=== PATIENT | male | born 1950 | race Caucasian/White ===

== ENCOUNTER 2024-06-17 12:56 | Inpatient (IN) | payer OTHER, SELFPAY ==
[2024-06-17] VITALS (14 sets, daily range): BP systolic 94–163; BP diastolic 52–98; PULSE 2–87; BMI 20.2; BMI 20.1
[2024-06-17 08:27] LABS: Glucose - Point of Care 260 mg/dl (70-99)
[2024-06-17 09:05] LABS: % Basophils 0.2 % (0-2); % Eosinophils 0.4 % (0-6); % Immature Granulocytes 0.9 % (0-0.5); % Lymphocytes 3.4 % (20.5-51.1); % Monocytes 5.4 % (1.7-9.3); % Neutrophils 89.7 % (42.2-75.2); Absolute Eosinophils 0.1 10^3/uL (0-0.7); Absolute Immature Granulocytes 0.1 10^3/uL (0-0.05); Absolute Lymphocytes 0.4 10^3/uL (1.2-3.4); Absolute Monocytes 0.7 10^3/uL (0.1-0.6); Absolute Neutrophils 11.5 10^3/uL (1.4-6.5); Hematocrit 34.4 % (39.0-52.0); Hemoglobin 10.7 g/dL (13.0-18.0); Mean Corp Hgb Conc. 31.1 g/dL (33.0-37.0); Mean Corpuscular Hgb 33.8 pg (27.0-31.0); Mean Corpuscular Volume 108.5 fL (80.0-94.0); Mean Platelet Volume 10.3 fL (7.4-10.4); Nucleated Red Blood Cells % 0 % (-); Platelet Count 170 10^3/uL (130-400); Red Blood Cell Count 3.17 10^6/uL (4.70-6.10); Red Cell Dist. Width 11.6 % (11.5-14.5); White Blood Cell Count 12.8 10^3/uL (4.8-10.8)
[2024-06-17 09:26] LABS: ALT (SGPT) 50 U/L (0-50); AST (SGOT) 61 U/L (17-59); Albumin 4.2 g/dl (3.5-5.0); Alkaline Phosphatase 80 U/L (38-126); Blood Urea Nitrogen 49 mg/dl (9-20); Calcium 10.4 mg/dl (8.4-10.2); Chloride 88 mmol/L (98-107); Glucose 247 mg/dl (70-99); Potassium 5.1 mmol/L (3.5-5.1); Sodium 141 mmol/L (135-145); Total Bilirubin 0.4 mg/dl (0.2-1.3); Total Protein 6.9 g/dl (6.3-8.2); eGFR > 60.00
[2024-06-17 09:28] LABS: INR 0.92; PT 12.2 Sec (11.4-14.6)
[2024-06-17 09:37] LABS: Troponin I 0.017 ng/ml
--- NOTE | 2024-06-17 09:43 | ED.GENMED ---
History of Present Illness
General
Chief Complaint: Unresponsive
Source: patient, records, spouse and ambulance crew
Exam Limitations: none
Time Seen by Provider: 06/17/24 08:19
Nursing documentation reviewed up to this point in time: agreed with
History of Present Illness
History of Present Illness:
Patient is a 74-year-old male who presents from home via EMS after being found unresponsive without any respirations this morning. When EMS arrived they found a systolic blood pressure 40 and respiratory rate of 4. Patient's pulse ox was in the
single digits. Patient is normally on 2 to 3 L of oxygen chronically. 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 Patient also has a history of prostate cancer. Patient was
treated with cisplatin and radiation for the tongue cancer. Patient has a G-tube because of aspiration and difficulty swallowing. Patient's speech according to family is at his baseline which is slurred. EMS also found the patient to be with a
left facial droop and weak on the left side and called a stroke alert. However when the patient arrived it was noted that he no longer had the facial droop nor any focality of weakness. Patient denies headache, neck pain, chest pain or shortness
of breath. Patient denies abdominal pain or extremity pain.
Past History
Past History
ED Past Medical History: Arrthythmia (Atrial flutter), Asthma, Cancer (tongue with metastasis to the lung w/ resection and Prostate), HTN, Hypercholesterolemia and Other (Dysphagia, PNA, chronic cough, Anemia, GI bleeding, )
ED Past Surgical History: Other (PEG tube, Lung resection from throat CA, Hernia repair)
Patient has exhibited threatening behavior?: No
Social History
Tobacco: Former smoker
Alcohol: None
Personal:
Living: with family
Review of Systems
Review of Systems
All Other Systems: ROS reviewed and negative except as documented in HPI and ROS
Constitutional: Reports fatigue; Denies fever or chills
EENT: Reports other (Chronic clearing of throat); Denies sore throat or runny nose
Respiratory: Reports no symptoms
Cardiac: Reports no symptoms
ABD/GI: Reports no symptoms
: Reports no symptoms
Musculoskeletal: Reports no symptoms; Denies neck pain
Skin: Reports no symptoms
Neurological: Reports weakness; Denies headache
Hematologic/Lymphatic: Reports no symptoms
Phy Exam
Physical Exam
Physical Exam:
Physical Exam
General: significant distress, alert and appropriate, cachectic with dry mucous membranes
HENT: Normocephalic, supple with no lymphadenopathy, no thyromegaly. Dry oral mucosa
Eyes: Clear sclera, conjuctiva without injection
Heart: Regular rhythm and rate. No S3, S4. Grade 2/6 holosystolic murmur heard best at the base. No NVD
Lungs: No respiratory distress, no stridor, lung sounds clear and equal bilaterally, chest wall symmetrical and nontender
Abdomen: Soft, nontender, no organomegaly, bowel sounds diminished. G-tube in the left upper quadrant
Neuro: Alert and oriented to person, CN II - XII intact, no motor focality
Skin: Scattered ecchymosis
Psychiatric: well kept. interactive and cooperative
Extremities: No edema, cyanosis, tenderness
Course
Orders/Labs/Results
Orders:
Orders
06/17/24 08:16
Electrocardiogram (*1) Urgent
Reason for Study: Chest Pain
CT Head W/o Cont STROKE ALERT Stat
Comment:
Reason For Exam: r/o stroke
EKG- Treatment ONCE
06/17/24 08:51
Complete Blood Count/With Diff Urgent
Comprehensive Metabolic Panel Urgent
Lactic Acid Q4H
Comment: CANCEL 2nd LACTIC ACID IF 1st LACTIC ACID IS LESS THAN 2
PTT Urgent
Prothrombin Time Urgent
Sed Rate [Erythrocyte Sed Rate] Urgent
TSH Reflex To Free T4 Urgent
Troponin I Urgent
Blood Culture Urgent
SANNA Source: Blood/Venous
Specimen Description:
06/17/24 09:40
0.9% Sodium Chloride 1000 ml [Nss] 1,000 ml IV BOLUS
Piperacillin/Tazo 4.5 Gram [Zosyn] 4.5 gram in 100 ml IV NOW
06/17/24 10:56
Vancomycin [Vancocin] 1,500 mg 0.9% Sodium Chloride [Nss] 20 ml 0.9% Sodium Chloride 250 ml [Nss] 250 ml IV NOW
06/17/24 10:58
Urinalysis Reflex To Culture Urgent
Date Specimen was Collected: 06/17/24
Time Specimen was Collected: 10:44
Urine Microscopic Reflex Cult Urgent
06/17/24 12:21
Manager Developmental Consult Routine
Consulting Provider: Thong Apple
Was physician already notified: Yes
Reason for consult: Acute hypoxia with chronic aspiration, unresponsiveness
06/17/24 12:22
NEUROLOGY CONSULT Routine
Consulting Provider: Cecilia Lopez
Was physician already notified: Yes
Reason for consult: Unresponsiveness, LT sided facial droop (resolved), TIA vs. seizure
06/17/24 12:24
Admit/Transfer Patient As Directed
Co-Sign Provider:
Level of Care: Inpatient admission
Assign to:: IMU- Intermediate Care
Physician / Group: Dr. Janusz Fields/Hospitalists
Diagnosis: Unresponsiveness, Hypoxia, Hypotension
Reason for Hospitalization: Unresponsiveness, Hypoxia, Hypotension
Expected length of stay greater than two midnights?: Yes
ELOS- Estimated Length of Stay in days: 3
I certify the patient meets the requirements for IP care: Yes
PRN Pain Medication Management As Directed
May give lesser potent ordered pain med per pt: Yes
preference::
Protocol:: Medication orders for pain may be administered in a
manner that supports deferring to patient preference
when the pt is:
- Requesting an ordered lesser potent pain medication.
Least to most potent pain medications are defined
as: acetaminophen < NSAID < tramadol < opioids
(morphine, oxycodone, hydromorphone).
- Requesting a lesser dose of the same medication IF
ORDERED.
- Requesting a less intrusive route of administration
if both routes are prescribed by the provider (PO <
IV).
06/17/24 12:26
Code Status As Directed
Resuscitation Status: Full Code
06/17/24 12:36
Echo 2D MMode Color/Doppler Routine
Reason for Study: Suspected Syncope/Unresponsiveness
06/17/24 12:37
Bladder Scan As Directed
Follow Bladder Retention/Intermittent Cath Algorithm?: Yes
PRN if no void in __ hours: 6
Frequency: Per Retention Algorithm
If Bladder Scan Result >: 400
then:: Straight cath
Straight Cath As Directed
Frequency: Per Retention Algorithm
Additional Instructions: straight cath as needed per acute urinary retention algorithm for 24 hrs
Additional Instructions: for bladder scan greater than 400 mL
06/17/24 12:39
CR Chest - 2 Views Urgent
Comment:
Reason For Exam: Unresponsiveness, hypoxia
06/17/24 12:44
INFECTIOUS DISEASE CONSULT Routine
Consulting Provider: Vishnu Harris
Was physician already notified: Yes
Reason for consult: Suspected sepsis of unknown source
06/17/24 13:22
Arterial Blood Gas Routine
%Oxygen/Room Air: 90
06/17/24 13:26
Ammonia Routine
Lactic Acid Q4H
Comment: CANCEL 2nd LACTIC ACID IF 1st LACTIC ACID IS LESS THAN 2
Abnormal Lab Results
06/17/24 06/17/24 06/17/24
08:12 08:51 10:58
WBC 12.8 H 10^3/uL
(4.8-10.8)
RBC 3.17 L 10^6/uL
(4.70-6.10)
Hgb 10.7 L g/dL
(13.0-18.0)
Hct 34.4 L %
(39.0-52.0)
MCV 108.5 H fL
(80.0-94.0)
MCH 33.8 H pg
(27.0-31.0)
MCHC 31.1 L g/dL
(33.0-37.0)
Abs Immat Gran (auto) 0.1 H 10^3/uL
(0-0.05)
Absolute Neuts (auto) 11.5 H 10^3/uL
(1.4-6.5)
Absolute Lymphs (auto) 0.4 L 10^3/uL
(1.2-3.4)
Absolute Monos (auto) 0.7 H 10^3/uL
(0.1-0.6)
Immature Gran % 0.9 H %
(0-0.5)
Neutrophils % 89.7 H %
(42.2-75.2)
Lymphocytes % 3.4 L %
(20.5-51.1)
ESR 26 H mm/hour
(0-20)
Chloride 88 L mmol/L
(98-107)
Carbon Dioxide 43 H mmol/L
(22-30)
BUN 49 H mg/dl
(9-20)
Glucose 247 H mg/dl
(70-99)
Lactic Acid 3.0 H mmol/L
(0.7-2.0)
Calcium 10.4 H mg/dl
(8.4-10.2)
AST 61 H U/L
(17-59)
Ur Occult Blood Reflex 2+ A
(Negative)
Urine RBC 3-6 A /HPF
(0-2)
Urine Bacteria (Reflex) Few A
(Negative)
Urine Glucose 1+ A
(Negative)
Urine Albumin (Reflex) 1+ A
(Neg - Trace)
POC Glucose 260 H mg/dl
(70-99)
06/17/24 08:51
06/17/24 08:51
Vital Signs
Initial and Last Documented VS:
Initial Vital Signs
Pulse Resp BP Pulse Ox
69 30 133/69 74
06/17/24 08:08 06/17/24 08:08 06/17/24 08:08 06/17/24 08:08
Last Documented Vital Signs
Temp Pulse Resp BP Pulse Ox
96.0 F L 70 16 112/61 97
06/17/24 11:30 06/17/24 11:15 06/17/24 11:15 06/17/24 11:00 06/17/24 11:15
*Critical Care Note
Total Time (30-74mins, 75-104mins- exclusive of procedures): 45 minutes
Update Note
Update Note:
There are no signs of a CVA. Patient was premorbid. I believe all the symptoms were due to hypoperfusion as well as hypoxia. Patient was found to be hypothermic. Patient's lactic acid is elevated. Believe the etiology is infectious. Patient
will be admitted. Discussed this with the family. Patient is much more alert and interactive at this time and looks much improved.
ED Attending Note
-
Portions of this chart may have been created with voice recognition software.� Occasional wrong word or��sound alike� substitutions may have occurred due to the inherent limitations of voice recognition software.
Discharge Plan
Departure
Patient Disposition: Admit
Date of Disposition: 06/17/24
Time of Disposition: 10:30
Admit to: Telemetry
Admit to doctor: Hospitalist
Presentation/result/management discussed w/ accepting MD/DO: Hospitalist
Patient with high blood pressure during this ER visit?: No
Condition: Serious
Covid-19: Not Applicable
Discharge Problem:
Hypothermia, Acute lactic acidosis, Acute alteration in mental status
Interventions
Interventions:
*General Assessment Last Done: 06/17/24 08:08
ED- Neurological Assessment Last Done: 06/17/24 09:15
[2024-06-17 09:57] LABS: TSH Reflex To Free T4 3.93 uIU/ml (0.47-4.68)
[2024-06-17] MEDS: NSS 1000 IV ×2 (10:09→16:48)
[2024-06-17] MEDS: ZOSYN 100 IV (10:10)
[2024-06-17 10:18] LABS: Carbon Dioxide 43 mmol/L (22-30)
[2024-06-17 10:35] LABS: Erythrocyte Sed Rate 26 mm/hour (0-20)
--- NOTE | 2024-06-17 10:55 | HPS.HSE ---
Addendum entered and electronically signed by Janusz Fields MD 06/17/24 14:30:
Based on results of ABG and after discussion with pulmonary on-call physician, ordered BiPAP with settings 15/5 to start now.
Original Note:
Family Physician
-
Family Physician: Rogelio Skinner
Chief Complaint
-
Unresponsiveness
History of Present Illness
74 y/o male with past medical history of throat cancer status post chemo and radiation, chronic slurred speech, left lung metastasis status post wedge resection, prostate cancer status post radiation, hypertension, paroxysmal atrial flutter,
bronchiectasis, chronic aspiration pneumonitis (on 2 to 3 L of oxygen at home), chronic aspiration status post PEG dependent for feeding, left gastric artery hemorrhage, intra-abdominal hematoma, anemia of chronic disease and dyslipidemia presented
with unresponsiveness. He presented from home via EMS after being found unresponsive without any respirations this morning; when EMS arrived they found a systolic blood pressure 40 and respiratory rate of 4; patient's pulse ox was in the single
digits. Patient's speech according to family is at his baseline which is slurred. Per report, EMS also found the patient to be with a left facial droop and weak on the left side and called a stroke alert but when the patient arrived it was noted
that he no longer had the facial droop nor any focality of weakness.
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
setting of using oral anticoagulation with Eliquis and he had an urgent angiogram after K[facility] with successful coiling and resolution of extravasation, he was given IV fluids and also required blood transfusions and his enteral feedings were able
to be resume later in the hospitalization without any problems. His anticoagulation was held and surgery felt that even though he could be restarted on anticoagulation from surgical standpoint they recommended to hold anticoagulation indefinitely
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
so based on those discussions he would decide whether to restart anticoagulation or not down the road.
Medical History
Past Medical History
Past Medical History: Reports Other (As per HPI above)
Past Surgical History: Reports Other (PEG tube, Lung resection from throat CA, Hernia repair)
Social History
Tobacco: Non-smoker
Alcohol: None
Drug: None
Family History
Family History: Not pertinent
Allergies / Home Medications
Allergies reflects when Allergies were last updated in [facility].
Home Medications with original date entered in [facility]
Allergy/Medication List:
Allergies
Allergy/AdvReac Type Severity Reaction Status Date / Time
No Known Allergies Allergy Verified 06/08/23 08:48
Home Medications
atorvastatin 20 mg tablet 20 mg feeding tube DAILY High Cholesterol 06/08/23
metoprolol tartrate 50 mg tablet 50 mg feeding tube BID Blood Pressure 07/15/23
Lactobac no.2-Bifidobac no.1-S. thermo 112.5 billion cell capsule (Visbiome) 1 cap PO DAILY 06/17/24
acetaminophen 325 mg tablet (Tylenol) 650 mg feeding tube Q6HPRN PRN mild pain 06/17/24
amlodipine 2.5 mg tablet (Norvasc) 2.5 mg feeding tube DAILY 06/17/24
cholecalciferol (vitamin D3) 25 mcg (1,000 unit) tablet (Vitamin D3) 25 mcg feeding tube DAILY 06/17/24
docusate sodium 100 mg capsule (Colace) 100 mg PO BID 06/17/24
guaifenesin 200 mg/5 mL oral liquid 200 mg feeding tube R BID 06/17/24
ipratropium bromide 0.02 % solution for inhalation 0.5 mg inhalation R BID 06/17/24
Review of Systems
-
A 12 point ROS was completed and negative except as noted: Yes
Physical Exam
Vital Signs
Vital Signs
Temp Pulse Resp BP Pulse Ox
93.3 F L 65 26 163/91 88
06/17/24 08:30 06/17/24 09:00 06/17/24 09:00 06/17/24 09:01 06/17/24 09:00
Physical Exam
General: No Apparent Distress, Comfortable and Slurred Speech
HEENT: NormoCephalic and Moist mucous membranes
Respiratory: Decreased Breath Sounds
Cardiac: S1/S2 and Regular Rhythm
GI: Soft, Non Tender and Normal Bowel Sounds
Musculoskeletal: No Cyanosis and No Edema
Skin: Warm and Dry
Neuro: Awake, Alert, AO x 3, Nonfocal/grossly intact, Cranial Nerves Intact (except for slurred speech) and Other (No facial droop. Strength and sensation grossly intact bilaterally.)
Psych: Calm and Intact Judgment/Insight
Laboratory Results
-
06/17/24 08:51
06/17/24 08:51
Laboratory Results
PT 12.2 Sec (11.4-14.6) 06/17/24 08:51
INR 0.92 06/17/24 08:51
APTT 27.0 Sec (23.4-35.0) 06/17/24 08:51
Lactic Acid 3.0 mmol/L (0.7-2.0) H 06/17/24 08:51
Total Bilirubin 0.4 mg/dl (0.2-1.3) 06/17/24 08:51
AST 61 U/L (17-59) H 06/17/24 08:51
ALT 50 U/L (0-50) 06/17/24 08:51
Alkaline Phosphatase 80 U/L (38-126) 06/17/24 08:51
Troponin I 0.017 ng/ml 06/17/24 08:51
Impression/Plan
-
Assessment/Plan
Unresponsiveness with hypotension and bradypnea
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
Chronic slurred speech
-When EMS arrived they found a systolic blood pressure 40 and respiratory rate of 4; patient's pulse ox was in the single digits
-Now stable in the ER
-Admit to and monitor in IMU
-Patient does not use any drugs or narcotic pain medications as per his and him
-Check ABG, Ammonia, Magnesium
-Check echo
-Trend troponins
-IV fluids
-Consulted pulmonary/revenue field auditor, evaluation and recommendations appreciated
-Consulted neurology, recommendations appreciated
Concern for Sepsis with Leukocytosis and Hypothermia
-Received Vancomycin and Zosyn in the ER
-Patient and his report no new skins redness or new rash, any urinary symptoms or any new cough that is above his baseline for aspiration
-Blood cultures ordered
-Source is unclear so far
-Continue antibiotics with Unasyn for now since this could have been aspiration-related
-Consulted ID, evaluation and recommendations appreciated
Hypothermia
-Continue Caitlyn Hugger
-Monitor vital signs
Left lung metastasis status post wedge resection
Prostate cancer status post radiation
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
-Avoiding blood thinners
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
History of Throat Cancer s/p XRT and Chemo
- Patient uses Jevity 1.5 at home. Five 8oz cans daily with water flushes before and after meals and meds.
- Continue home tube feed Jevity 1.5 at 20 mL/hr and increase by 10 with goal of 55
- Will consult dietary for any updated tube feeding recommendations
Bronchiectasis (on 2 to 3 L of oxygen at home)
Chronic Aspiration Pneumonitis
- Patient normally sees Dr. Powers outpatient
- Check CXR
- Continue usual inhaled medication regimen.
- Aspiration precautions / HOB restrictions.
- Follow for any new / worsening symptoms.
- Patient is strict NPO - takes all meds / meals via PEG.
Paroxysmal Atrial Flutter
- Stable. Continue metoprolol with holding parameters.
- Patient's stated on 06/17/24 that patient does not take Eliquis anymore
Anemia of Chronic Disease
- Hgb 10.7 today
History of MRSA
Dyslipidemia
Hypertension
DVT Prophylaxis: SCDs for now -- checking with surgery whether chemical DVT prophylaxis is okay
Code Status: Full
[2024-06-17 11:33] LABS: Urine Albumin 1+ (Neg - Trace); Urine Bilirubin Negative (Negative); Urine Character Clear (Clear); Urine Color Yellow; Urine Glucose 1+ (Negative); Urine Ketone Negative (Negative); Urine Leukocyte Negative (Negative); Urine Nitrite Negative (Negative); Urine Occult Blood 2+ (Negative); Urine Specific Gravity 1.015 (<1.030); Urine Urobilinogen Negative (Neg - 1+)
[2024-06-17] MEDS: VANCOCIN 300 ML IV (11:49)
[2024-06-17] MEDS: VANCOCIN 300 MG IV (11:49)
[2024-06-17 12:07] LABS: Urine Bacteria Few (Negative); Urine White Cell None Seen /HPF (0-5)
[2024-06-17 13:31] LABS: B.E. 18.2 mmol/L; PO2 70 mmHg (83-108); pH 7.28 (7.35-7.45)
[2024-06-17 13:32] LABS: O2 Therapy 90
[2024-06-17 13:33] LABS: PCO2 103 mmHg (35-48)
[2024-06-17 13:34] LABS: HCO3 48.4 mmol/L (21-28)
[2024-06-17 13:56] LABS: Ammonia 13 umol/L (9-30)
[2024-06-17 13:57] LABS: Lactic Acid 0.9 mmol/L (0.7-2.0)
[2024-06-17 14:01] LABS: NT-proBNP 588 pg/ml
--- NOTE | 2024-06-17 14:49 | CON.ID ---
Consultation
-
Date/Time Consultation Requested: 06/17/2024 1244
Date/Time Consultation Performed: 06/17/2024 1420
Requesting Provider: Dr. Fields
Performing Provider: Dr. Harris
Reason for Consultation: Clinical sepsis
Chief Complaint / Past History
History of Present Illness
Asael Pierre is a 74-year-old man with a significant past medical history of remote throat cancer, along with prostate cancer and bronchiectasis. He is being evaluated at the request of Dr. Casillas in regards to clinical sepsis. History
is obtained from chart review, along with patient interview, and review of records contained in the hospital EMR system. Additionally, history was obtained of the patient's who was at the bedside.
According to the , the patient was in his usual state of health until this morning when she went to wake him up as he was late to arise. When she found him he was found completely unresponsive, seemingly not breathing. EMS was called, and when
they found him in his systolic blood pressure was 40, with respiratory rate of 4. The patient was emergently transported to the hospital. By the time the patient arrived at the hospital, his clinical status improved and he was much more awake and
answering questions. He does not recall the prior episode.
At present, he denies any pain. He has a chronic cough. He denies any abdominal discomfort.
Past History
Additional Past Medical History:
Atrial flutter
Asthma
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
Prostate cancer
HTN
Dyslipidemia
Chronic dysphagia
Recurrent aspiration pneumonia
Chronic cough
Anemia
Hx GI bleed
Additional Past Surgical History:
PEG tube
lung resection
Hernia repair
Allergy History:
No Known Allergies Allergy (Verified 06/08/23 08:48)
Medications Reviewed: Yes
Current Antibiotics:
Unasyn 1.5 g IV every 6 hours
Social History
Tobacco: Former Smoker
Alcohol: None
Drug: None
Personal:
Living: With Family
Employment: Retired
Family History
Family History: Not Pertinent
Review of Systems
Vital Signs
Temp Pulse Resp BP Pulse Ox
96.0 F L 70 16 112/61 97
06/17/24 11:30 06/17/24 11:15 06/17/24 11:15 06/17/24 11:00 06/17/24 11:15
Physical Exam
Physical Exam
Constitutional: No Acute Distress, Comfortable, Chronically Ill and Cachetic
Head: Normocephalic
Eyes: Pupils Equal, Pupils Round, No Conjunctival Hemorrhage and Sclera Anicteric
Oral: No Thrush and No Ulcers
Cardiovascular: Regular Rate and S1/S2; Negative S3/S4 or Murmur
Pulmonary: Rhonchi (scattered), Coarse and Other (Mildly labored)
Gastrointestinal: Soft, Non Distended and Other (PEG in place without erythema)
Genito-Urinary: Negative [place]
Extremities: Negative Edema, Cyanosis or Erythema
Neurological: Awake and Alert
Psychological: Calm
.
Lab / Diagnostic Study Results
06/17/24 08:51
06/17/24 08:51
Abs Immat Gran (auto) 0.1 10^3/uL (0-0.05) H 06/17/24 08:51
Absolute Neuts (auto) 11.5 10^3/uL (1.4-6.5) H 06/17/24 08:51
Absolute Lymphs (auto) 0.4 10^3/uL (1.2-3.4) L 06/17/24 08:51
Absolute Monos (auto) 0.7 10^3/uL (0.1-0.6) H 06/17/24 08:51
Absolute Basos (auto) 0.0 10^3/uL (0-0.2) 06/17/24 08:51
Immature Gran % 0.9 % (0-0.5) H 06/17/24 08:51
Neutrophils % 89.7 % (42.2-75.2) H 06/17/24 08:51
Lymphocytes % 3.4 % (20.5-51.1) L 06/17/24 08:51
Monocytes % 5.4 % (1.7-9.3) 06/17/24 08:51
Eosinophils % 0.4 % (0-6) 06/17/24 08:51
Basophils % 0.2 % (0-2) 06/17/24 08:51
ESR 26 mm/hour (0-20) H 06/17/24 08:51
PT 12.2 Sec (11.4-14.6) 06/17/24 08:51
INR 0.92 06/17/24 08:51
Lactic Acid 0.9 mmol/L (0.7-2.0) 06/17/24 13:26
Microbiology Results
Micro:
06/17/24 08:51 Blood Culture - Pending
Blood/Venous
Imaging:
06/17/2024 CXR (2 view): Confluent pleural-parenchymal density throughout the lower two thirds of the left hemothorax and a similar and interstitial airspace disease in the upper third. Findings are most consistent with left-sided pneumonia with
associated pleural effusion. Right lung is clear. No pulmonary edema. See full report for additional detail. Film personally viewed.
Assessment / Plan
Unresponsive event
Extensive left-sided pneumonia
Leukocytosis with left shift
Anemia
Hypothermia
Atrial flutter
Asthma
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
Prostate cancer
HTN
Dyslipidemia
Chronic dysphagia
Recurrent aspiration pneumonia
Chronic cough
Anemia
Hx GI bleed
Recommendations:
Continue with empiric antibiotic coverage.
Patient with history of MRSA 1 year prior; continue empiric vancomycin.
Continue Unasyn, although increased to 3 g IV every 6 hours
Monitor white count and temperature curve.
Follow CXR.
--- NOTE | 2024-06-17 15:16 | CON.PUL ---
Consultation
Consultation Request
Date/Time Consultation Requested: 06/17/2024
Date/Time Consultation Performed: 06/17/2024
Requesting Provider: Dr. Fields
Performing Provider: Dr. Thong Rodriguez
Reason for Consultation: Acute hypercapnic respiratory failure
Medical History
-
History of Present Illness:
74-year-old man with past medical history noted including past throat cancer status post chemoradiation, PEG tube in place, speech impairment, left lung metastatic disease status post wedge resection
Prostate cancer status post radiation, hypertension, atrial fibrillation/flutter, chronic aspiration on 2 to 3 L of oxygen at home, prior GI bleed presented after he was found unresponsive.
Patient was found to be hypotensive as well. Also very hypoxemic. Initially with left-sided weakness that recovered.
Patient found to have acute hypercapnic respiratory failure with a pCO2 of 103. He was placed on BiPAP.
His mental status has improved since admission.
Past Medical History
Past Medical History: Other (See assessment and plan section)
Social History
Tobacco: Non-smoker
Alcohol: None
Drug: None
Family History
Family History: Unable to Obtain
Allergies / Home Medications
Allergies
Allergy/AdvReac Type Severity Reaction Status Date / Time
No Known Allergies Allergy Verified 06/08/23 08:48
Home Medications
�Medication �Instructions �Recorded �Confirmed �Last Taken �Type
atorvastatin 20 mg tablet 20 mg feeding tube DAILY High 06/08/23 06/17/24 06/16/24 History
Cholesterol
metoprolol tartrate 50 mg tablet 50 mg feeding tube BID Blood 07/15/23 06/17/24 06/16/24 History
Pressure
Lactobac no.2-Bifidobac no.1-S. 1 cap PO DAILY 06/17/24 06/17/24 06/16/24 History
thermo 112.5 billion cell capsule
(Visbiome)
acetaminophen 325 mg tablet 650 mg feeding tube Q6HPRN PRN 06/17/24 06/17/24 Unknown History
(Tylenol) mild pain
amlodipine 2.5 mg tablet (Norvasc) 2.5 mg feeding tube DAILY 06/17/24 06/17/24 Unknown History
cholecalciferol (vitamin D3) 25 25 mcg feeding tube DAILY 06/17/24 06/17/24 Unknown History
mcg (1,000 unit) tablet (Vitamin
D3)
docusate sodium 100 mg capsule 100 mg PO BID 06/17/24 06/17/24 06/16/24 History
(Colace)
guaifenesin 200 mg/5 mL oral liquid 200 mg feeding tube R BID 06/17/24 06/17/24 06/16/24 History
ipratropium bromide 0.02 % 0.5 mg inhalation R BID 06/17/24 06/17/24 06/16/24 History
solution for inhalation
Review of Systems
-
Unable to Obtain full review of systems at this time due to: Acuity
Vitals / Labs / Diagnostic Testing
Vital Signs
Temp Pulse Resp BP Pulse Ox
96.0 F L 80 24 107/72 97
06/17/24 11:30 06/17/24 14:30 06/17/24 14:30 06/17/24 15:00 06/17/24 14:30
Lab Data
06/17/24 08:51
06/17/24 08:51
Laboratory Results
06/17/24 06/17/24
08:51 13:22
PT 12.2
INR 0.92
APTT 27.0
pH 7.28 L
pCO2 103 H*
pO2 70 L
HCO3 48.4 H*
O2 Delivery Level 90
Diagnostic Testing:
Physical Exam
-
HEENT: Normocephalic
Cardiovascular: S1/S2
Respiratory: Other (Decreased breath sounds on left)
GI: Soft and Other (PEG tube in place)
Neurology: Awake
Skin: Warm
General: Comfortable (at rest)
Assessment
-
74-year-old man with past medical history noted. Admitted with change in mental status/unresponsiveness. Found to have hypercapnic respiratory failure. Improved clinically in regards to mental status. Chest x-ray showed extensive left-sided
infiltrate with possible subsegmental atelectasis/pneumonia.
Acute hypercapnic respiratory failure
ABG 06/17/2024: 7.28//70
Pneumonia-likely bacterial. Cannot rule out aspiration
Extensive left-sided infiltrate with likely subsegmental atelectasis based on the left shift of the mediastinum.
Hyperglycemia
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
Admitted to the hospital with left gastric artery bleeding status post embolization 06/2023
Chronic PEG
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
Left Lung Met s/p Wedge Resection
Prostate Cancer s/p XRT
Autonomic Insufficiency with Labile Blood Pressure
Paroxysmal Atrial Flutter, on apixaban
Bronchiectasis
Chronic Aspiration Pneumonitis
Dyslipidemia
Former Smoker (Quit 13 years ago. Smoke cigars prior to that)
DNR
Assessment and plan:
Clinical picture likely explained by left-sided pneumonia with possible segmental atelectasis. Suspect aspiration event.
Continue BiPAP therapy bedtime and as needed.
Repeat ABG tomorrow morning as his mental status has improved
Start secretion clearance interventions: Acapella device/vest therapy
Nebulizers 3 times a day
Repeat chest x-ray tomorrow
If there is no improvement on the left sided white out on Wednesday, bronchoscopy may need to be performed.
-
Agree with antibiotics. Ampicillin sulbactam. Infectious disease has been consulted. Correspondence reviewed.
Blood/sputum cultures
-
Continue oxygen supplementation to maintain pulse ox above 90%
Avoid sedatives
-
Head of the bed elevation
Tube feedings via PEG tube.
-
DVT prophylaxis
-
Will follow
--- NOTE | 2024-06-17 16:12 | PHA.VAN.IN ---
Assessment
- Assessment
Renal Function: Appears similar to baseline (SCR & BUN may be slightly elevated)
Concomitant Antimicrobials: ampicillin/sulbactam
Plan
- Plan
Initial / Loading Dose: 1500mg - 06/17 11:49
Maintenance Regimen: dosing by level
Monitoring: random 06/18 0600
Due to elevated BUN - will start with dosing by level for today to ensure patient adequately clearing before scheduling further dosing
Additionally, current est CrCl, currently predicts ~Q24H interval but is borderline and may need more frequent interval if SCR decreases
Pharmacokinetics Vancomycin I
- -
Patient Age: 74
Patient Sex: Male
Vancomycin Day #: 1
Indication: Pulmonary/Respiratory
Requesting Provider: Dr. Harris
Pertinent Antimicrobial Allergies:
NKDA
Height / Weight:
Height 5 ft 10 in
Actual Weight 63.8 kg
Pertinent Past Medical History: PEG
- Vital Signs / Lab Results
Temp Pulse Resp BP Pulse Ox
96.0 F L 80 24 154/95 97
06/17/24 11:30 06/17/24 14:30 06/17/24 14:30 06/17/24 16:00 06/17/24 14:30
Lab Results - Hematology
06/17/24
08:51
WBC 12.8 H
Lab Results - Chemistry
06/17/24
08:51
BUN 49 H
Creatinine 1.0
Albumin 4.2
06/17/24 06/17/24
08:51 13:26
Lactic Acid 3.0 H 0.9
Lab Results - Urine
06/17/24
10:58
Urine Nitrite (Reflex) Negative
Leukocyte Esterase Rfl Negative
Urine WBC (Reflex) None seen
Urine Bacteria (Reflex) Few A
[2024-06-17] MEDS: PULMICORT 0.25 MG INH ×2 (16:15→20:01)
[2024-06-17] MEDS: VENTOLIN NEBULES 2.5 MG INH ×2 (16:16→20:01)
[2024-06-17 16:45] LABS: Ammonia < 9 umol/L (9-30)
[2024-06-17 16:52] LABS: Creatine Phosphokinase 40 U/L (55-170); Magnesium 2.3 mg/dl (1.6-2.3)
[2024-06-17 17:00] LABS: Troponin I 0.079 ng/ml
--- NOTE | 2024-06-17 17:04 | PTCARENOTE ---
Addendum entered by Nica Dominguez RN 06/17/24 19:20:
pox alarming 79% on bipap, diaphoretic- removed bipap and placed on NRB mask- RT called urgent- pox came back up to 95-98%. Pt nodding he feels better now. IVF infusing/ IV antibx.
Original Note:
Admitted to 3353, IMU monitors placed- oral 98.1, SR 85, RR 36 88-90% on 6L, BP 154/90. AAOx3, excessive oral secretions- suctioned assisted coughing improved but still gurgling. RT called for assistance. RT here to give neb/ vest therapies
possibly bipap. IVF initiated via left ext. jug int. VAT team notified of site. G/J tube intact- will initiate tube feeding when available. Denies pain.
Currently RT still assisting- now attempting bipap. pox 88-89%.
[2024-06-17] MEDS: UNASYN IV ×2 (17:44→23:19)
[2024-06-17] MEDS: LIPITOR 20 MG TUBE (17:45)
[2024-06-17 18:09] LABS: Glucose - Point of Care 106 mg/dl (70-99)
--- NOTE | 2024-06-17 18:35 | CON.MD ---
Consultation - Medical
-
Patient is a 74-year-old male well-known to me as an outpatient. He has a history of head and neck cancer that was diagnosed and treated in 2012. He underwent biopsy of the base of tongue mass along with radiation to the base of tongue and
head and neck in 2012. Subsequently he was found to have a lung metastasis several years after his initial diagnosis. The lung met was treated with local resection only, no chemotherapy or radiation. Following treatment for his head and neck
cancer the patient has had worsening dysphagia. He has had a history of aspiration pneumonia with multiple hospitalizations for aspiration pneumonia in the past. He has failed a number of swallowing studies and is now n.p.o. He only takes
nutrition via his PEG tube. The patient also has slurred speech at his baseline due to side effects from his head and neck cancer treatment. He is otherwise neurologically intact at baseline.
The patient does have increased salivation due to his history of dysphagia. He has been getting Botox injections to his salivary glands in my office. Yesterday, June 16, at 2 PM he received his second Botox injection. We injected 50 units of
Botox into each submandibular gland. No parotid injection was performed. The patient tolerated the procedure well. He drove himself home. He states that he felt fine yesterday afternoon and evening subsequent to the injection. He went to bed
and was unarousable this morning. He was found by his . 911 was called. Initially he was found to have a left facial droop. However when he got to [facility] the facial droop had apparently resolved.
Currently he is short of breath but otherwise feels okay. His head and neck examination this evening is unremarkable. No facial droop is noted and his facial nerve appears intact and symmetric bilaterally.
On chest x-ray there is a near whiteout of the left lung. This seems to be consistent with left lung pneumonia, likely aspiration related.
A/P-my impression of Asael Castorena is that he is a 74-year-old male with a history of head and neck cancer, he has a long history of aspiration, now appears to have aspiration pneumonia of the left lung.
-Medical treatment as per primary medical team.
-Continue to feed patient via PEG tube.
-Hopefully the Botox injected yesterday will improve his hypersalivation, possibly decreasing his risk of aspiration in the future.
-Patient can continue ENT follow-up as planned.
-Please contact me if there are any further issues
[2024-06-17] MEDS: ATROVENT NEBULES 0.5 MG INH (20:01)
[2024-06-17] MEDS: LOPRESSOR 50 MG PO (20:11)
[2024-06-17] MEDS: NOVOLOG FLEXPEN-LOW RESISTANCE SC (23:46)
[2024-06-17 23:50] LABS: Troponin I 0.069 ng/ml
[2024-06-17 23:54] LABS: Glucose - Point of Care 138 mg/dl (70-99)
[2024-06-18] VITALS (17 sets, daily range): BP systolic 113–157; BP diastolic 61–110; PULSE 2–83; O2SAT 98; BMI 20.4
[2024-06-18 04:49] LABS: B.E. 19.9 mmol/L; O2 Saturation % 97.2 % (94-98); PO2 76 mmHg (83-108); pH 7.31 (7.35-7.45)
[2024-06-18 04:53] LABS: HCO3 49.3 mmol/L (21-28); PCO2 98 mmHg (35-48)
[2024-06-18 05:28] LABS: ALT (SGPT) 33 U/L (0-50); AST (SGOT) 35 U/L (17-59); Albumin 3.2 g/dl (3.5-5.0); Alkaline Phosphatase 66 U/L (38-126); Blood Urea Nitrogen 45 mg/dl (9-20); Calcium 9.1 mg/dl (8.4-10.2); Chloride 94 mmol/L (98-107); Estimated Creatinine Clearance 81 ml/min; Glucose 150 mg/dl (70-99); Potassium 4.5 mmol/L (3.5-5.1); Sodium 140 mmol/L (135-145); Total Bilirubin 0.3 mg/dl (0.2-1.3); Total Protein 5.6 g/dl (6.3-8.2); eGFR > 60.00
[2024-06-18 05:33] LABS: Vancomycin Random 10.4 ug/ml
[2024-06-18] MEDS: UNASYN IV ×4 (05:43→23:51)
[2024-06-18 05:49] LABS: Carbon Dioxide 42 mmol/L (22-30)
[2024-06-18 05:57] LABS: Hemoglobin 8.5 g/dL (13.0-18.0); White Blood Cell Count 10.5 10^3/uL (4.8-10.8)
[2024-06-18 05:58] LABS: % Lymphocytes 1.9 % (20.5-51.1); % Monocytes 7.6 % (1.7-9.3); Hematocrit 26.8 % (39.0-52.0); Mean Corp Hgb Conc. 31.7 g/dL (33.0-37.0); Mean Corpuscular Volume 107.2 fL (80.0-94.0); Platelet Count 111 10^3/uL (130-400); Red Cell Dist. Width 11.8 % (11.5-14.5)
[2024-06-18] MEDS: NSS 1000 IV ×2 (05:58→23:52)
[2024-06-18 05:59] LABS: % Basophils 0.1 % (0-2); % Immature Granulocytes 0.4 % (0-0.5); Absolute Lymphocytes 0.2 10^3/uL (1.2-3.4); Absolute Monocytes 0.8 10^3/uL (0.1-0.6); Absolute Neutrophils 9.4 10^3/uL (1.4-6.5); Nucleated Red Blood Cells % 0 % (-)
[2024-06-18 06:16] LABS: Vitamin B12 923 pg/ml (239-931)
[2024-06-18 06:33] LABS: Glucose - Point of Care 155 mg/dl (70-99)
[2024-06-18] MEDS: NOVOLOG FLEXPEN-LOW RESISTANCE 1 UNITS SC ×2 (06:38→18:34)
[2024-06-18] MEDS: PULMICORT 0.25 MG INH ×2 (07:44→20:03)
[2024-06-18] MEDS: ATROVENT NEBULES 0.5 MG INH ×2 (07:45→20:03)
[2024-06-18] MEDS: VENTOLIN NEBULES 2.5 MG INH ×2 (07:46→20:03)
[2024-06-18] MEDS: LOPRESSOR 50 MG PO ×2 (08:49→19:37)
[2024-06-18] MEDS: LIPITOR 20 MG TUBE (08:49)
--- NOTE | 2024-06-18 09:29 | CON.NEURO4 ---
Consultation - Neurology 4
-
CONSULTING PHYSICIAN: Jessica
REFERRING PHYSICIAN: hospitalist
DICTATED BY: Jessica
DATE/TIME OF REQUEST: 06/17/24 afternoon
DATE/TIME OF CONSULTATION: 06/18/24 AM
Reason for Consultation: facial droop--transient, ?seizure
History of Present Illness:
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
in after being found unresponsive and hypotensive as well as hypoxemic. Initially his respiratory rate was 4. Systolic blood pressure was in the 40s. He has had lactic acidosis which has improved. He received IV fluids and antibiotics.
Initially a stroke alert was called which was then canceled by the ER. Later I was consulted by the Dr. Fields. There is concern for left-sided facial droop noted by regulator assembler and the patient's which occurred initially which then resolved.
Concern is also been raised for possible seizure. No clear convulsive seizure activity was noted by the patient's with the event. She says he has been 'jerky and tremulous' intermittently over the past few weeks.
He received 50 units of Botox into each submandibular gland on Wednesday around 2 PM.
Mental status has improved since admission. No seizure activity since admission. He is at his baseline per his .
PMH:
Atrial flutter
Asthma
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
Prostate cancer
HTN
Dyslipidemia
Chronic dysphagia
Recurrent aspiration pneumonia
Chronic cough
Anemia
Hx GI bleed
PSH:
PEG tube
lung resection
Hernia repair
Allergies
No Known Allergies Allergy (Verified 06/08/23 08:48)
Home Medications
�Medication �Instructions �Recorded
atorvastatin 20 mg tablet 20 mg feeding tube DAILY High 06/08/23
Cholesterol
metoprolol tartrate 50 mg tablet 50 mg feeding tube BID Blood 07/15/23
Pressure
Lactobac no.2-Bifidobac no.1-S. 1 cap PO DAILY 06/17/24
thermo 112.5 billion cell capsule
(Visbiome)
acetaminophen 325 mg tablet 650 mg feeding tube Q6HPRN PRN 06/17/24
(Tylenol) mild pain
amlodipine 2.5 mg tablet (Norvasc) 2.5 mg feeding tube DAILY 06/17/24
cholecalciferol (vitamin D3) 25 25 mcg feeding tube DAILY 06/17/24
mcg (1,000 unit) tablet (Vitamin
D3)
docusate sodium 100 mg capsule 100 mg PO BID 06/17/24
(Colace)
guaifenesin 200 mg/5 mL oral liquid 200 mg feeding tube R BID 06/17/24
ipratropium bromide 0.02 % 0.5 mg inhalation R BID 06/17/24
solution for inhalation
Review of Symptoms:
Patient denies any headache, chest pain, GI or symptoms.
�Per the HPI.�All systems are reviewed negative except above.
Vital Signs
Temp Pulse Resp BP Pulse Ox
98.8 F 83 28 140/79 97
06/18/24 07:25 06/18/24 08:49 06/18/24 07:49 06/18/24 08:49 06/18/24 07:49
Lab Results
06/18/24 04:53
06/18/24 04:53
PT 12.2 Sec (11.4-14.6) 06/17/24 08:51
INR 0.92 06/17/24 08:51
APTT 27.0 Sec (23.4-35.0) 06/17/24 08:51
Sodium 140 mmol/L (135-145) 06/18/24 04:53
Potassium 4.5 mmol/L (3.5-5.1) 06/18/24 04:53
BUN 45 mg/dl (9-20) H 06/18/24 04:53
Glucose 150 mg/dl (70-99) H 06/18/24 04:53
Calcium 9.1 mg/dl (8.4-10.2) 06/18/24 04:53
Hrb-U-Fanevolcihx Pept 588 pg/ml 06/17/24 13:26
Vitamin B12 923 pg/ml (239-931) 06/18/24 04:53
Physical Exam:
The patient is afebrile, heart sounds S1 and S2 are regular , and chest is clear to auscultation bilaterally.
Neurologic Examination:
The patient is awake, alert and oriented x 3. He is able to follow commands and answer questions appropriately. There is no aphasia; has baseline dysarthria s/p head and neck cancer--this is his baseline per the patient and his . On cranial
nerve assessment, pupils are 3 mm bilateral, round and reactive to light and accommodation. Visual sethi are full. Extraocular movements are intact. Facial sensations are intact and bilaterally symmetrical, there is no facial asymmetry. Hearing is
intact bilaterally to normal conversation volume. Tongue palate and uvula are midline. Sternocleidomastoid strengths are full bilaterally. Motor strengths are 5/5 bilateral upper and lower extremities on medical research [place] scale. There is no
drift or involuntary movement noted. Deep tendon reflexes are 1+ bilateral upper and lower extremities and Babinski is absent bilaterally. Sensations of touch, temperature are intact and bilaterally symmetrical. There was no extinction noted on
double simultaneous stimulation. Coordination is intact by finger to nose bilaterally.
Neuro Imaging:
HCT 06/17:
There are no acute abnormalities.
There is no intracranial hemorrhage.
There is no edema or mass effect to suggest neoplasm.
There are no abnormal extra-axial fluid collections.
There are no focal areas of diminished density to suggest recent infarct.
There is mild diffuse cortical atrophy as evidenced by prominence of the CSF spaces.
IMPRESSION:
No acute intracranial abnormalities.
Impression:
MERCY NEIL is a 74 year old M with a complex past medical history brought in with unresponsiveness and concern for possible L facial weakness prior to this event which has resolved. He was very hypotensive and hypoxemic with the event.
He has been found to have left sided PNA, possibly due to aspiration.
Differentials for the patient's presentation include:
1. syncope
2. seizure seems less likely
3. ?transient left facial weakness--concern raised for TIA
Recommendations:
-MRI brain w/wo contrast when able (if able to tolerate); otherwise could repeat a HCT instead
-has a h/o of GI bleed--GI consulted to clear him for DAPT or single antiplatelet given possibility of TIA
-CUS
- very much doubt that this event was seizure but patient does report possible myoclonic jerks over past few weeks so will check an EEG tomorrow
-BP goal is normotension.
- Check hemoglobin A1C. Goal is normoglycemia.
- continue atorvastatin. Check LDL. Goal LDL after stroke is <70.
- Check an echocardiogram.
-PT/OT/ST evaluations
- DVT prophylaxis
-continue neurochecks, seizure precautions
-reviewed notes from pulm, hospitalist, ENT
Will c/t follow.
Discussed patient care with: patient, patient's , hospitalist
--- NOTE | 2024-06-18 09:34 | W.PN.ID1 ---
Date of Service
Date of Service: June 18, 2024
Today's Communication
Continue antibiotics.
Assessment / Plan
Unresponsive event
Extensive left-sided pneumonia
Leukocytosis with left shift
Anemia
Hypothermia
Atrial flutter
Asthma
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
Prostate cancer
HTN
Dyslipidemia
Chronic dysphagia
Recurrent aspiration pneumonia
Chronic cough
Anemia
Hx GI bleed
Recommendations:
Patient with history of MRSA 1 year prior; continue empiric vancomycin.
Continue Unasyn 3 g IV every 6 hours
Monitor white count and temperature curve.
Follow CXR. Today's imaging appears slightly improved from yesterday's.
Chief Complaint
-: Pneumonia
Subjective / Review of Systems
Patient seen and examined. Reports feeling fair today. Breathing is comfortable.
Vital Signs / Physical Exam
Vital Signs
Vital Signs
Temp Pulse Resp BP Pulse Ox
98.8 F 83 28 140/79 97
06/18/24 07:25 06/18/24 08:49 06/18/24 07:49 06/18/24 08:49 06/18/24 07:49
Physical Exam
Constitutional: No Acute Distress, Comfortable, Chronically Ill and Non-toxic
Eyes: Sclera Anicteric
Cardiovascular: S1/S2; Negative S3/S4
Pulmonary: Rhonchi (Scattered), Coarse and Non Labored
Gastrointestinal: Soft, Non Tender and Non Distended
Extremities: Negative Cyanosis or Erythema
Neurological: Awake and Alert
Psychological: Calm
Objective Data
Lab Data
Lab Results
06/18/24 04:53
06/18/24 04:53
ESR 26 mm/hour (0-20) H 06/17/24 08:51
PT 12.2 Sec (11.4-14.6) 06/17/24 08:51
INR 0.92 06/17/24 08:51
APTT 27.0 Sec (23.4-35.0) 06/17/24 08:51
Estimated Creat Clear 81 ml/min 06/18/24 04:53
Lactic Acid 0.9 mmol/L (0.7-2.0) 06/17/24 13:26
Total Bilirubin 0.3 mg/dl (0.2-1.3) 06/18/24 04:53
AST 35 U/L (17-59) 06/18/24 04:53
ALT 33 U/L (0-50) 06/18/24 04:53
Alkaline Phosphatase 66 U/L (38-126) 06/18/24 04:53
Most recent labs reviewed.
Micro Results:
06/17/24 08:51 Blood Culture - Preliminary
Blood/Venous No Growth in 24 hours- Final report to follow
Imaging:
06/17/2024 CXR (2 view): Confluent pleural-parenchymal density throughout the lower two thirds of the left hemothorax and a similar and interstitial airspace disease in the upper third. Findings are most consistent with left-sided pneumonia with
associated pleural effusion. Right lung is clear. No pulmonary edema. See full report for additional detail. Film personally viewed.
Care Review
Plan reviewed with: Physician (Pulmonary)
--- NOTE | 2024-06-18 10:05 | W.PN.PUL3 ---
Today's Communication / Plan
-
Continue nebulizers
Continue secretion clearance interventions
Continue antibiotics
Follow cultures
Wean down oxygen as able
BiPAP at bedtime and as needed
Repeat ABG tomorrow.
Avoid sedatives
Increase activity as able
Aspiration precautions
Assessment
-
74-year-old man with past medical history noted. Admitted with change in mental status/unresponsiveness. Found to have hypercapnic respiratory failure. Improved clinically in regards to mental status. Chest x-ray showed extensive left-sided
infiltrate with possible subsegmental atelectasis/pneumonia.
Acute hypercapnic respiratory failure
ABG 06/17/2024: 7./
Pneumonia-likely bacterial. Cannot rule out aspiration
Extensive left-sided infiltrate with likely subsegmental atelectasis based on the left shift of the mediastinum.
Hyperglycemia
Possible TIA
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
Admitted to the hospital with left gastric artery bleeding status post embolization 06/2023-of anticoagulation since that
Chronic PEG
Chronic anemia
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
Left Lung Met s/p Wedge Resection
Prostate Cancer s/p XRT
Autonomic Insufficiency with Labile Blood Pressure
Paroxysmal Atrial Flutter, on apixaban
Bronchiectasis
Chronic Aspiration Pneumonitis
Dyslipidemia
Former Smoker (Quit 13 years ago. Smoke cigars prior to that)
DNR
Assessment and plan:
Clinical picture likely explained by left-sided pneumonia with possible segmental atelectasis. Suspect aspiration event.
Appears that the patient does have chronic hypercapnic respiratory failure. Decompensated due to pneumonia
-
Mental status back to baseline
ABG improved 06/18/2024:7.98/76.
Continue BiPAP therapy bedtime and as needed.
Avoid sedatives.
Repeat ABG once more tomorrow 06/19/2024.
-
Continue oxygen supplementation to maintain pulse ox above 90%. Patient is chronically on oxygen at home.
Currently at 6 L. Usually at home went up to 4 L per
-
Chest x-ray this morning 06/18/2024 reviewed: Showed better aeration of the left lung.
Continue secretion clearance interventions: Acapella device/vest therapy
Nebulizers: Pulmicort/Atrovent.
Albuterol as needed.
Continue to follow radiographically.
If there is not ongoing radiographic improvement Then will obtain CT chest.
-
Continue antibiotics: Ampicillin sulbactam. Infectious disease has been consulted. Correspondence reviewed.
MRSA screening positive.Vancomycin was added.
Blood/sputum cultures-pending.
-
Head of the bed elevation
Tube feedings via PEG tube-patient is a status post throat cancer status post chemoradiation. NPO.
-
Possible TIA. Neurologically back to baseline
Neurology following the patient
Management per primary team and neurology
-
DVT prophylaxis
-
Will follow
Subjective Data
-
Date of Service:
Date of Service: June 18, 2024
Chief Complaint: Pulmonary Follow Up (Pneumonia/hypercapnic respiratory failure)
Subjective:
No new complaints.
No significant phlegm production.
Remains on supplemental oxygen
Denies hemoptysis.
Review of Systems
General: Fever (n)
Cardiopulmonary: Dyspnea, Cough, Sputum Production (n) and Chest Pain (n)
GI: Abdominal Pain (n)
Objective Data
Data Reviewed
Vital Signs / I&O / Oxygen:
Vital Signs
Temp Pulse Resp BP Pulse Ox
98.8 F 83 28 140/79 97
06/18/24 07:25 06/18/24 08:49 06/18/24 07:49 06/18/24 08:49 06/18/24 07:49
Intake and Output
06/17/24 06/18/2406/19/24
06:59 06:59 06:59
Output Total 450 / 450
Balance -450 / -450
SaO2 97
Nasal Cannula flow liters per 6
minute
Physical Exam
General: Respiratory Distress (n) and Comfortable
HEENT: Normocephalic
Cardiovascular: S1-S2
Respiratory: Wheeze (n), Rhonchi (Scattered bilaterally per) and Other (Bronchial breath sounds on the left.)
GI: Soft and Non Distended
Neurology: Awake, Alert and Oriented
Skin: Warm
Labs/Micro/Reports
Lab Data
06/18/24 04:53
06/18/24 04:53
Laboratory Results
06/17/24 06/18/24
13:22 04:42
pH 7.28 L 7.31 L
pCO2 103 H* 98 H*
pO2 70 L 76 L
HCO3 48.4 H* 49.3 H*
O2 Delivery Level 90
Microbiology
06/17/24 08:51 Blood/Venous Blood Culture - Preliminary
No Growth in 24 hours- Final report to follow
--- NOTE | 2024-06-18 10:07 | PHA.VAN.FU ---
Vancomycin Assessment / Plan
- Assessment
Renal Function: SCR Decreasing
WBC's are: Trending Down
In the past 24 hrs, patient has been: Hypothermic (Tmin = 96)
Concomitant Antimicrobials: Ampicillin-sulbactam
- Assessment - Therapeutic Drug Monitoring
Random Level: R = 10.4 ~17hrs post Vanc 1500mg
- Dosing Plan
Continue: Dose by level. BUN is 45 today.
Dosing by Level: Re-dose today (Vanc 750mg--12mg/kg)
- Monitoring Plan
Random Level: 06/19 with AM labs
- Follow Up
Pharmacy will continue to follow.
Vancomycin Follow UP
- -
Patient Age: 74
Patient Sex: Male
Vancomycin Day #: 2
Indication: Pulmonary/Respiratory
Requesting Provider: Dr. Harris
Pertinent Antimicrobial Allergies:
NKDA
Height / Weight:
Height 5 ft 9 in
Actual Weight 62.5 kg
Pertinent Past Medical History: PEG
- Vital Signs / Lab Results
Temp Pulse Resp BP Pulse Ox
98.8 F 83 28 140/79 97
06/18/24 07:25 06/18/24 08:49 06/18/24 07:49 06/18/24 08:49 06/18/24 07:49
Lab Results - Hematology
06/17/24 06/18/24
08:51 04:53
WBC 12.8 H 10.5
Lab Results - Chemistry
06/17/24 06/18/24
08:51 04:53
BUN 49 H 45 H
Creatinine 1.0 0.7
Estimated Creat Clear 81
Albumin 4.2 3.2 L
06/17/24 06/17/24
08:51 13:26
Lactic Acid 3.0 H 0.9
Lab Results - Urine
06/17/24
10:58
Urine Nitrite (Reflex) Negative
Leukocyte Esterase Rfl Negative
Microbiology Results
06/17/24 08:51 Blood Culture - Preliminary
Blood/Venous No Growth in 24 hours- Final report to follow
Therapeutic Drug Monitoring
Random Vancomycin 10.4 ug/ml 06/18/24 04:53
[2024-06-18 11:53] LABS: LDL Cholesterol, Direct 58 mg/dl
[2024-06-18 12:13] LABS: Glucose - Point of Care 136 mg/dl (70-99)
--- NOTE | 2024-06-18 12:42 | W.PN.HOSP.TC ---
Addendum entered and electronically signed by Janusz Fields MD 06/18/24 15:31:
I received a [place] Text from on-call road design draftsperson, Dr. 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
acute CVA then okay to use anti platelets. Dr. Rios also noted that patient's was VERY afraid to use the Aspirin and Plavix since patient bled significantly in June 2023. Patient's is hoping that Aspirin and Plavix can be stopped if MRI
is negative/does not show stroke. I spoke via [place] Text with on-call neurologist Dr. Lopez who confirmed that the DAPT therapy that should be started is as follows: Aspirin 81 mg daily and Plavix 75 mg daily, both to start now.
Original Note:
Today's Communication/Plan
-
Appreciate GI evaluation of whether patient can be on Aspirin, Plavix or both given his history of major bleeding (treated here at [facility] last year)
Continue antibiotics
ABG improved
Aspiration precautions
Tube Feeds -- advance as tolerated to goal rate
Assessment / Plan
Assessment / Plan
Physical Exam
General: Not in Acute Distress
HEENT: Normocephalic
Respiratory: Decreased Breath Sounds and Scattered Rhonchi Bilaterally
Cardiac: S1/S2 and Regular Rhythm
GI: Soft, Non Tender and Normal Bowel Sounds
Musculoskeletal: No Cyanosis and No Edema
Skin: Warm and Dry
Neuro: Awake, Alert, AAO x 3, Nonfocal/grossly intact, Cranial Nerves Grossly Intact (except for slurred speech)
Psych: Calm and Intact Judgment/Insight

Assessment/Plan
Acute hypoxic and hypercapnic respiratory failure
Chronic Home Oxygen Use (2 to 4 L)
Suspected Aspiration Pneumonia
History of MRSA
-Currently on 5 to 6 L midflow oxygen; at home is usually on 2 to 4 L of oxygen
-ABG noted with significantly high CO2 with high bicarb as well, repeat ABG improved, repeat ABG tomorrow
-Continue BiPAP therapy bedtime and as needed.
-Avoid sedating agents
-Per imaging, extensive left-sided infiltrate with likely subsegmental atelectasis based on the left shift of the mediastinum.
-Continue Vancomycin and Unasyn
-Continue oxygen supplementation to maintain pulse oximetry above 90%.
-Breathing treatments/bronchodilators, acapella, and VEST therapy
Unresponsiveness with hypotension and bradypnea, suspected secondary to respiratory failure and hypercapnia
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
Chronic slurred speech
-When EMS arrived they found a systolic blood pressure 40 and respiratory rate of 4; patient's pulse ox was in the single digits
-Continue monitoring in IMU
-Patient does not use any drugs or narcotic pain medications as per his and him
-ABG noted
-Check echo
-Troponins elevated but with no significant increase
-IV fluids
-Consulted pulmonary/combat information center officer, evaluation and recommendations appreciated
-Consulted neurology, recommendations appreciated: MRI brain (only if patient can tolerate given his aspiration risk), question of whether or not patient can be started on Aspirin 81 mg daily and Plavix 75 mg daily or single antiplatelet agent -- GI
consulted to help determine whether DAPT or single platelet therapy would be safe for patient (given patient's gastric artery hemorrhage needing coiling here in [facility] in June 2023)
-Check EEG as per neurology
-Continue Atorvastatin
Concern for Sepsis with Leukocytosis and Hypothermia
-Received Vancomycin and Zosyn in the ER
-Patient and his report no new skins redness or new rash, any urinary symptoms or any new cough that is above his baseline for aspiration
-Blood cultures ordered
-Source is unclear so far
-Continue antibiotics with Unasyn for now since this could have been aspiration-related
-Consulted ID, evaluation and recommendations appreciated
Hypothermia
-Continue Caitlyn Hugger
-Monitor vital signs
Left lung metastasis status post wedge resection
Prostate cancer status post radiation
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
-Avoiding blood thinners
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
History of Throat Cancer s/p XRT and Chemo
- Patient uses Jevity 1.5 at home. Five 8oz cans daily with water flushes before and after meals and meds.
- Continue home tube feed Jevity 1.5 at 20 mL/hr and increase by 10 with goal of 55
- Will consult dietary for any updated tube feeding recommendations
Bronchiectasis (on 2 to 4 L of oxygen at home)
Chronic Aspiration Pneumonitis
- Patient normally sees Dr. Powers outpatient
- Continue usual inhaled medication regimen.
- Aspiration precautions / HOB restrictions.
- Follow for any new / worsening symptoms.
- Patient is strict NPO - takes all meds / meals via PEG.
Paroxysmal Atrial Flutter
- Stable. Continue metoprolol with holding parameters.
- Patient's stated on 06/17/24 that patient does not take Eliquis anymore due to concerns over bleeding risk
Anemia of Chronic Disease
- Hgb 10.7 today
History of MRSA
Dyslipidemia
Hypertension
Autonomic Insufficiency with Labile Blood Pressure
Former Smoker (Quit 13 years ago. Smoke cigars prior to that)
DVT Prophylaxis: SCDs for now -- DEYSI score is 3 (given age, respiratory failure and acute infection -- all other parameters on DEYSI score were negative as checked with patient's Mini). I encouraged (on 06/18/24) patient and patient's nurse
to help patient get out of bed and ambulate with assistance as much as possible to minimize the risk of a DVT. Administering Lovenox or Heparin for DVT prophylaxis carries a bleeding risk and patient has a history of a major bleed last year and he
is also above 70 years old. GI will evaluate to see whether patient can be given DAPT (or single antiplatelet agent) for possible stroke/TIA.
Code Status: Full
Anticipated Discharge: > 48 hours
Subjective/Interval History
-
Date of Service: June 18, 2024
Patient was seen and examined. He denied any new significant symptoms or complaints.
Objective Data
-
Labs:
Laboratory Results
06/18/24 06/18/24
04:42 04:53
WBC 10.5
Hgb 8.5 L D
Hct 26.8 L
Plt Count 111 L D
HCO3 49.3 H*
Sodium 140
Potassium 4.5
Chloride 94 L
Carbon Dioxide 42 H
BUN 45 H
Creatinine 0.7
Glucose 150 H
Calcium 9.1
Total Bilirubin 0.3
AST 35
ALT 33
Alkaline Phosphatase 66
Vital Signs:
Vital Signs
Temp Pulse Resp BP Pulse Ox
98.3 F 71 19 141/110 98
06/18/24 11:20 06/18/24 10:14 06/18/24 10:14 06/18/24 10:14 06/18/24 10:00
I&O
06/17/24 06/18/24 06/19/24
06:59 06:59 06:59
Output Total 450 / 450
Balance -450 / -450
[2024-06-18] MEDS: NOVOLOG FLEXPEN-LOW RESISTANCE SC ×2 (12:47→23:48)
[2024-06-18] MEDS: VANCOCIN 150 IV (12:53)
[2024-06-18] MEDS: COLACE LIQUID 100 MG TUBE ×2 (12:54→19:39)
--- NOTE | 2024-06-18 15:11 | PTCARENOTE ---
Addendum entered by Ernesto Santamaria RN 06/18/24 18:09:
Tube feeding residual 200ml. Patient c/o constipation with some bloating. Home colace restarted today, PRN miralax dose given.
Original Note:
Patient AAOx3. With baseline LUE tingling/decreased movement and baseline slurring. Patients only complaint is constipation, states LBM 06/16, home colace restarted today. Tube feeding now at goal and tolerating. 5L NC, sats 95%, patient with
productive cough, using yankaur to remove blood tinged sputum. NSR on monitor. VSS. Patient OOB to chair, at bedside. Continuing to closely monitor.
--- NOTE | 2024-06-18 15:14 | CON.GI ---
Consultation
-
Date/Time Consultation Requested: 06/18/24 10:06am
Date/Time Consultation Performed: 06/18/24 3:14pm
Requesting Provider: Janusz Fields
Performing Provider: Rizwan Rios
Reason for Consultation: possible CVA, need for ASA plavix
Medical History
Chief Complaint / HPI
Chief Complaint: possible CVA, need for ASA plavix
History of Present Illness:
Patient is a 74-year-old male who was found unresponsive by his and brought in by EMS. He had left-sided weakness that has since recovered. He is undergoing evaluation by neurology with plans for MRI of the brain. They are requesting okay to
use aspirin and Plavix in the setting of bleed last June. He was found to have active bleeding from the left gastric artery aneurysm with hemoperitoneum requiring embolization. Following the procedure bleeding was stopped and anticoagulation was
held since then. He has a history of a flutter.
Past Medical History
Past Medical History: Other (HPV Throat Cancer s/p XRT and Chemo Left Lung Met s/p Wedge Resection Prostate Cancer s/p XRT Autonomic Insufficiency with Labile Blood Pressure Paroxysmal Atrial Flutter Bronchiectasis Chronic Aspiration Pneumonitis
PEG-Dependent Dyslipidemia)
Past Surgical History: Other (Left Lung Wedge Resection Herniorrhaphy PEG Placement, Embolization of bleeding L gastric artery pseudoaneurysm/hemoperitoneum June/2023)
Social History
Tobacco: Former Smoker
Alcohol: None
Family History
Family History: Reviewed & Not Pertinent
Allergies / Home Medications
Allergy/AdvReac Type Severity Reaction Status Date / Time
No Known Allergies Allergy Verified 06/08/23 08:48
�Medication �Instructions �Recorded
atorvastatin 20 mg tablet 20 mg feeding tube DAILY High 06/08/23
Cholesterol
metoprolol tartrate 50 mg tablet 50 mg feeding tube BID Blood 07/15/23
Pressure
Lactobac no.2-Bifidobac no.1-S. 1 cap PO DAILY 06/17/24
thermo 112.5 billion cell capsule
(Visbiome)
acetaminophen 325 mg tablet 650 mg feeding tube Q6HPRN PRN 06/17/24
(Tylenol) mild pain
amlodipine 2.5 mg tablet (Norvasc) 2.5 mg feeding tube DAILY 06/17/24
cholecalciferol (vitamin D3) 25 25 mcg feeding tube DAILY 06/17/24
mcg (1,000 unit) tablet (Vitamin
D3)
docusate sodium 100 mg capsule 100 mg PO BID 06/17/24
(Colace)
guaifenesin 200 mg/5 mL oral liquid 200 mg feeding tube R BID 06/17/24
ipratropium bromide 0.02 % 0.5 mg inhalation R BID 06/17/24
solution for inhalation
Review of Systems
-
All other systems: A 12 pt ROS was Negative except as stated above in HPI
Vital Signs
Temp Pulse Resp BP Pulse Ox
98.3 F 69 32 128/77 99
06/18/24 11:20 06/18/24 14:00 06/18/24 14:00 06/18/24 14:00 06/18/24 14:00
Physical Exam
Exam
General: No Apparent Distress
HEENT: Atraumatic
Respiratory: Non Labored Respirations
GI: Soft, Non Tender, Non Distended and Other (PEG tube in place)
Results
WBC 10.5 10^3/uL (4.8-10.8) 06/18/24 04:53
Hgb 8.5 g/dL (13.0-18.0) L D 06/18/24 04:53
Hct 26.8 % (39.0-52.0) L 06/18/24 04:53
MCV 107.2 fL (80.0-94.0) H 06/18/24 04:53
Plt Count 111 10^3/uL (130-400) L D 06/18/24 04:53
Absolute Neuts (auto) 9.4 10^3/uL (1.4-6.5) H 06/18/24 04:53
PT 12.2 Sec (11.4-14.6) 06/17/24 08:51
INR 0.92 06/17/24 08:51
APTT 27.0 Sec (23.4-35.0) 06/17/24 08:51
Sodium 140 mmol/L (135-145) 06/18/24 04:53
Potassium 4.5 mmol/L (3.5-5.1) 06/18/24 04:53
Chloride 94 mmol/L (98-107) L 06/18/24 04:53
Carbon Dioxide 42 mmol/L (22-30) H 06/18/24 04:53
BUN 45 mg/dl (9-20) H 06/18/24 04:53
Creatinine 0.7 mg/dL (0.7-1.3) 06/18/24 04:53
Calcium 9.1 mg/dl (8.4-10.2) 06/18/24 04:53
Total Bilirubin 0.3 mg/dl (0.2-1.3) 06/18/24 04:53
AST 35 U/L (17-59) 06/18/24 04:53
ALT 33 U/L (0-50) 06/18/24 04:53
Alkaline Phosphatase 66 U/L (38-126) 06/18/24 04:53
Diagnostic Image Results:
Prior GI Procedures:
EGD:
Colonoscopy:
Assessment / Plan
-
Summary: 74yo male found unresponsive brought by EMS, left sided facial droop. Seen by Neurology and requesting OK for ASA/plavix. Has hx abdominal hematoma from L gastric artery pseudoaneurysm requiring embolization in June 2023.
Anticoagulation was stopped following that episode. He had recent PEG change a month prior to that and there was no bleeding from PEG and bleeding site was away from PEG entry or bumper. Hgb on admission 10.7, down to 8.5 after admission without
signs of bleeding
Impression:
Unresponsiveness, L sided facial droop
June/2023 abdominal hematoma from L gastric artery pseudoaneurysm s/p embolization of actively bleeding branch of L gastric artery
throat cancer s/p chemo/radiation, chronic slurred speech
prostate CA s/p XRT
PEG for chronic aspiration
Recommendations:
I reviewed with IR. 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
This bleeding site was adequately treated and ASA and plavix should be OK to use at this time in setting of possible acute CVA
Monitor Hgb, which did drop after admission.
-
-
Thank you for consultation and allowing me to participate in the patient's care. Please call the manager interventional GI physician during the after hours with any questions or concerns.
[2024-06-18 15:26] LABS: Glycohemoglobin (HgbA1c) 4.9 % (4.0-5.6)
[2024-06-18] MEDS: PLAVIX 75 MG PO (17:16)
[2024-06-18] MEDS: LOW STRENGTH ASPIRIN 81 MG PO (17:16)
[2024-06-18] MEDS: MIRALAX 17 GRAMS TUBE (17:21)
[2024-06-18 18:28] LABS: Glucose - Point of Care 154 mg/dl (70-99)
[2024-06-18 23:54] LABS: Glucose - Point of Care 129 mg/dl (70-99)
[2024-06-19] VITALS (12 sets, daily range): BP systolic 121–181; BP diastolic 69–135; PULSE 2–78; BMI 21.1
[2024-06-19] MEDS: VENTOLIN NEBULES 2.5 MG INH (03:17)
[2024-06-19 03:54] LABS: B.E. 19.1 mmol/L; O2 Saturation % 97.8 % (94-98); PO2 78 mmHg (83-108); pH 7.31 (7.35-7.45)
[2024-06-19 03:55] LABS: HCO3 48.3 mmol/L (21-28); PCO2 96 mmHg (35-48)
[2024-06-19 04:27] LABS: % Basophils 0.1 % (0-2); % Eosinophils 0.2 % (0-6); % Immature Granulocytes 1.1 % (0-0.5); % Lymphocytes 4.2 % (20.5-51.1); % Monocytes 6.6 % (1.7-9.3); % Neutrophils 87.8 % (42.2-75.2); Absolute Immature Granulocytes 0.1 10^3/uL (0-0.05); Absolute Lymphocytes 0.4 10^3/uL (1.2-3.4); Absolute Monocytes 0.6 10^3/uL (0.1-0.6); Absolute Neutrophils 8.4 10^3/uL (1.4-6.5); Hematocrit 25.4 % (39.0-52.0); Hemoglobin 8.1 g/dL (13.0-18.0); Mean Corp Hgb Conc. 31.9 g/dL (33.0-37.0); Mean Corpuscular Hgb 33.2 pg (27.0-31.0); Mean Corpuscular Volume 104.1 fL (80.0-94.0); Mean Platelet Volume 10.6 fL (7.4-10.4); Nucleated Red Blood Cells % 0 % (-); Platelet Count 120 10^3/uL (130-400); Red Blood Cell Count 2.44 10^6/uL (4.70-6.10); Red Cell Dist. Width 11.8 % (11.5-14.5); White Blood Cell Count 9.5 10^3/uL (4.8-10.8)
[2024-06-19 04:33] LABS: ALT (SGPT) 29 U/L (0-50); AST (SGOT) 29 U/L (17-59); Albumin 3.2 g/dl (3.5-5.0); Alkaline Phosphatase 66 U/L (38-126); Blood Urea Nitrogen 40 mg/dl (9-20); Calcium 9.4 mg/dl (8.4-10.2); Chloride 95 mmol/L (98-107); Estimated Creatinine Clearance 84 ml/min; Glucose 144 mg/dl (70-99); Potassium 4.3 mmol/L (3.5-5.1); Sodium 142 mmol/L (135-145); Total Bilirubin 0.2 mg/dl (0.2-1.3); Total Protein 5.6 g/dl (6.3-8.2); eGFR > 60.00
[2024-06-19 04:37] LABS: Vancomycin Random 9.6 ug/ml
[2024-06-19 04:51] LABS: Carbon Dioxide 47 mmol/L (22-30)
[2024-06-19] MEDS: UNASYN IV ×4 (05:58→23:58)
[2024-06-19] MEDS: NOVOLOG FLEXPEN-LOW RESISTANCE 1 UNITS SC ×2 (05:58→23:58)
--- NOTE | 2024-06-19 06:05 | PTCARENOTE ---
Residual 180ml's - s/w REAL ESTATE ASSESSOR, okay to hold x 2 hours. Rechecked residual = 55ml's. Restarted tube feed, no further issue. Pt having difficulty tolerating BiPAP mask do to excessive secretions and coughing - s/w RT, to use nose mask instead. Pt
tolerated nose mask better however removed mask several times due to uncomfrtable pressure. Re-educated Pt on need of BiPAP - RT reapplied BiPAP mask. Will continue to monitor and assess.
[2024-06-19 06:08] LABS: Glucose - Point of Care 151 mg/dl (70-99)
--- NOTE | 2024-06-19 06:50 | W.PN.HOSP.TC ---
Today's Communication/Plan
-
.
Assessment / Plan
Assessment / Plan
Physical Exam
General: Not in Acute Distress
HEENT: Normocephalic
Respiratory: Decreased Breath Sounds and Scattered Rhonchi Bilaterally
Cardiac: S1/S2 and Regular Rhythm
GI: Soft, Non Tender and Normal Bowel Sounds
Musculoskeletal: No Cyanosis and No Edema
Skin: Warm and Dry
Neuro: Awake, Alert, AAO x 3, Nonfocal/grossly intact, Cranial Nerves Grossly Intact (except for slurred speech)
Psych: Calm and Intact Judgment/Insight

Assessment/Plan
Acute on chronic hypoxic and hypercapnic respiratory failure
Chronic Home Oxygen Use (2 to 4 L)
Suspected Aspiration Pneumonia
History of MRSA
-Currently on 5 to 6 L midflow oxygen; at home is usually on 2 to 4 L of oxygen
-ABG noted with significantly high CO2 with high bicarb as well, repeat ABG improved, repeat ABG tomorrow
-Continue BiPAP therapy bedtime and as needed.
-Avoid sedating agents
-Per imaging, extensive left-sided infiltrate with likely subsegmental atelectasis based on the left shift of the mediastinum. Repeat chest x ray : Slightly improved left pleural effusion and diffuse left lung pneumonia.
-Continue Vancomycin and Unasyn
-Continue oxygen supplementation to maintain pulse oximetry above 90%.
-Breathing treatments/bronchodilators, acapella, and VEST therapy
Unresponsiveness with hypotension and bradypnea, suspected secondary to respiratory failure and hypercapnia
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
Chronic slurred speech
-When EMS arrived they found a systolic blood pressure 40 and respiratory rate of 4; patient's pulse ox was in the single digits
-Continue monitoring in IMU
-Patient does not use any drugs or narcotic pain medications as per his and him
-ABG noted
-Check echo
-Troponins elevated but with no significant increase
-IV fluids
-Consulted pulmonary/deputy director of public works, evaluation and recommendations appreciated
-Consulted neurology, recommendations appreciated: MRI brain (only if patient can tolerate given his aspiration risk), question of whether or not patient can be started on Aspirin 81 mg daily and Plavix 75 mg daily or single antiplatelet agent -- GI
consulted to help determine whether DAPT or single platelet therapy would be safe for patient (given patient's gastric artery hemorrhage needing coiling here in [facility] in June 2023)
-Check EEG as per neurology
-Continue Atorvastatin
Per GI: GI doctor reviewed with IR. 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
This bleeding site was adequately treated and ASA and Plavix should be OK to use at this time in setting of possible acute CVA
Monitor Hgb, which did drop after admission.
Positive troponin
not significant or c/w myocardial injury
No chest pains
Concern for Sepsis with Leukocytosis and Hypothermia
-Received Vancomycin and Zosyn in the ER
-Patient and his report no new skins redness or new rash, any urinary symptoms or any new cough that is above his baseline for aspiration
-Blood cultures ordered
-Source is unclear so far
-Continue antibiotics with Unasyn for now since this could have been aspiration-related
-Consulted ID, evaluation and recommendations appreciated
Hypothermia
-Continue Caitlyn Hugger
-Monitor vital signs
Left lung metastasis status post wedge resection
Prostate cancer status post radiation
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
-Avoiding blood thinners
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
History of Throat Cancer s/p XRT and Chemo
- Patient uses Jevity 1.5 at home. Five 8oz cans daily with water flushes before and after meals and meds.
- Continue home tube feed Jevity 1.5 at 20 mL/hr and increase by 10 with goal of 55
- Will consult dietary for any updated tube feeding recommendations
Bronchiectasis (on 2 to 4 L of oxygen at home)
Chronic Aspiration Pneumonitis
- Patient normally sees Dr. Powers outpatient
- Continue usual inhaled medication regimen.
- Aspiration precautions / HOB restrictions.
- Follow for any new / worsening symptoms.
- Patient is strict NPO - takes all meds / meals via PEG.
Paroxysmal Atrial Flutter
- No chest pain, no palpitations. Continue metoprolol with holding parameters.
- Patient's stated on 06/17/24 that patient does not take Eliquis anymore due to concerns over bleeding risk
Cachexia without malnutrition
Acute on chronic anemia due to Anemia of Chronic Disease
- Hgb 8
no active bleeding
History of MRSA
Dyslipidemia
Hypertension
Autonomic Insufficiency with Labile Blood Pressure
Former Smoker (Quit 13 years ago. Smoke cigars prior to that)
DVT Prophylaxis: Thrombo guards and dual anti-plts therapy
Code Status: Full
Total time spent to see the patient, examine the patient on the floor, review data and lab results, discuss treatment plan with patient, nursing staff around 55 minutes
Anticipated Discharge: > 48 hours
Subjective/Interval History
-
Date of Service: June 19, 2024
He feels better, less sob, denies chest pain or abdominal pain
Objective Data
-
Labs:
Laboratory Results
06/19/24 06/19/24
03:44 04:07
WBC 9.5
Hgb 8.1 L
Hct 25.4 L
Plt Count 120 L
HCO3 48.3 H*
Sodium 142
Potassium 4.3
Chloride 95 L
Carbon Dioxide 47 H
BUN 40 H
Creatinine 0.7
Glucose 144 H
Calcium 9.4
Total Bilirubin 0.2
AST 29
ALT 29
Alkaline Phosphatase 66
Vital Signs:
Vital Signs
Temp Pulse Resp BP Pulse Ox
98.9 F 76 28 146/71 93
06/19/24 03:28 06/19/24 03:18 06/19/24 03:18 06/18/24 19:37 06/19/24 03:18
I&O
06/17/24 06/18/24 06/19/24
06:59 06:59 06:59
Output Total 450 / 450 450 / 450
Balance -450 / -450 -450 / -450
[2024-06-19] MEDS: PULMICORT 0.25 MG INH ×2 (07:39→19:27)
[2024-06-19] MEDS: ATROVENT NEBULES 0.5 MG INH ×2 (07:39→19:27)
[2024-06-19] MEDS: LIPITOR 20 MG TUBE (07:50)
[2024-06-19] MEDS: COLACE LIQUID 100 MG TUBE ×2 (07:50→20:42)
[2024-06-19] MEDS: PLAVIX 75 MG PO (07:50)
[2024-06-19] MEDS: LOW STRENGTH ASPIRIN 81 MG PO (07:50)
[2024-06-19] MEDS: LOPRESSOR 50 MG PO ×2 (07:50→20:42)
--- NOTE | 2024-06-19 08:49 | W.PN.ID1 ---
Date of Service
Date of Service: June 19, 2024
Today's Communication
Continue antibiotics.
Assessment / Plan
Unresponsive event
Extensive left-sided pneumonia
Leukocytosis with left shift
Anemia
Hypothermia
Atrial flutter
Asthma
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
Prostate cancer
HTN
Dyslipidemia
Chronic dysphagia
Recurrent aspiration pneumonia
Chronic cough
Anemia
Hx GI bleed
Recommendations:
Patient with history of MRSA 1 year prior; continue empiric vancomycin.
Continue Unasyn 3 g IV every 6 hours
Monitor white count and temperature curve.
Follow CXR. Today's imaging reveals ongoing overall improvement, with increased aeration.
Chief Complaint
-: Pneumonia
Subjective / Review of Systems
Patient seen and examined. No specific complaints at present.
Vital Signs / Physical Exam
Vital Signs
Vital Signs
Temp Pulse Resp BP Pulse Ox
99.5 F 81 30 146/71 93
06/19/24 07:24 06/19/24 07:44 06/19/24 07:44 06/18/24 19:37 06/19/24 03:18
Physical Exam
Constitutional: No Acute Distress, Comfortable, Chronically Ill and Non-toxic
Eyes: Sclera Anicteric
Cardiovascular: S1/S2; Negative S3/S4
Pulmonary: Coarse (Bilateral) and Non Labored
Gastrointestinal: Soft, Non Distended, Normal Bowel Sounds, No Rebound, No Guarding and Other (PEG in place)
Extremities: Negative Edema, Cyanosis or Erythema
Neurological: Awake and Alert
Psychological: Calm
Objective Data
Lab Data
Lab Results
06/19/24 04:07
06/19/24 04:07
ESR 26 mm/hour (0-20) H 06/17/24 08:51
PT 12.2 Sec (11.4-14.6) 06/17/24 08:51
INR 0.92 06/17/24 08:51
APTT 27.0 Sec (23.4-35.0) 06/17/24 08:51
Estimated Creat Clear 84 ml/min 06/19/24 04:07
Lactic Acid 0.9 mmol/L (0.7-2.0) 06/17/24 13:26
Total Bilirubin 0.2 mg/dl (0.2-1.3) 06/19/24 04:07
AST 29 U/L (17-59) 06/19/24 04:07
ALT 29 U/L (0-50) 06/19/24 04:07
Alkaline Phosphatase 66 U/L (38-126) 06/19/24 04:07
Most recent labs reviewed.
Chest X-Ray: Image Reviewed and Report Reviewed
Micro Results:
06/17/24 08:51 Blood Culture - Preliminary
Blood/Venous No Growth in 24 hours- Final report to follow
Imaging:
06/19/2024 CXR (portable): Improved aeration of left upper lobe.
06/17/2024 CXR (2 view): Confluent pleural-parenchymal density throughout the lower two thirds of the left hemothorax and a similar and interstitial airspace disease in the upper third. Findings are most consistent with left-sided pneumonia with
associated pleural effusion. Right lung is clear. No pulmonary edema. See full report for additional detail. Film personally viewed.
--- NOTE | 2024-06-19 09:09 | PHA.VAN.FU ---
Vancomycin Assessment / Plan
- Assessment
Renal Function: Stable
WBC's are: WNL
In the past 24 hrs, patient has been: Afebrile
Concomitant Antimicrobials: ampicillin/sulbactam
- Assessment - Therapeutic Drug Monitoring
Random Level: 9.6 - drawn ~15H after previous dose of 750mg
- Dosing Plan
Dosing by Level: Re-dose today (Vanc 1000mg)
Estimated CrCl likely overestimated and not predictive of vanc clearance
Patient likely will require Q24H interval based on current level trend
Increasing dose slightly for today
- Monitoring Plan
Random Level: 06/20 0600
- Follow Up
Pharmacy will continue to follow.
Vancomycin Follow UP
- -
Patient Age: 74
Patient Sex: Male
Vancomycin Day #: 3
Indication: Pulmonary/Respiratory
Requesting Provider: Dr. Harris
Pertinent Antimicrobial Allergies:
NKDA
Height / Weight:
Height 5 ft 9 in
Actual Weight 64.9 kg
Pertinent Past Medical History: PEG
- Vital Signs / Lab Results
Temp Pulse Resp BP Pulse Ox
99.5 F 81 30 146/71 93
06/19/24 07:24 06/19/24 07:44 06/19/24 07:44 06/18/24 19:37 06/19/24 03:18
Lab Results - Hematology
06/17/24 06/18/24 06/19/24
08:51 04:53 04:07
WBC 12.8 H 10.5 9.5
Lab Results - Chemistry
06/17/24 06/18/24 06/19/24
08:51 04:53 04:07
BUN 49 H 45 H 40 H
Creatinine 1.0 0.7 0.7
Estimated Creat Clear 81 84
Albumin 4.2 3.2 L 3.2 L
06/17/24 06/17/24
08:51 13:26
Lactic Acid 3.0 H 0.9
Microbiology Results
06/17/24 08:51 Blood Culture - Preliminary
Blood/Venous No Growth in 48 hours- Final report to follow
Therapeutic Drug Monitoring
Random Vancomycin 9.6 ug/ml 06/19/24 04:07
--- NOTE | 2024-06-19 09:12 | W.PN.PUL3 ---
Addendum entered and electronically signed by Miriam Flanagan DO 06/19/24 15:15:
Patient is a 74-year-old M with COPD, Bronchiectasis, former smoker, throat cancer s/p radiation, acute on chronic hypercapnic respiratory failure. They have had multiple ER and hospital readmissions with a complications of shortness of breath and
respiratory failure. The patient has a PaCO2 of 103 mmHg on 6 L of oxygen. The patient reports they are on oxygen continuously. The patient reports they get short of breath with minimal exertion. They also report they are very limited because of
breathing issues. Due to the patient's comorbidities as noted above and hypoventilation, the patient is at risk for worsening chronic respiratory failure. I have considered bilevel, bilevel ST and bilevel VAPS therapy and they have all been ruled
out due to the patient's worsening clinical condition. The patient now requires a unique mode of ventilation not offered on less costly options. The patient requires a device that will not fail in the event of a power failure and is also portable
for mobility within the home when needed. Due to the patient's worsening condition, I am prescribing NIV therapy to decrease the chance of continued unexplained expensive medical encounters including physician office visits, emergency/urgent care
treatment and hospital readmissions.
Original Note:
Today's Communication / Plan
-
Severe CO2 retention, acute on chronic
Maintain BIPAP at night and with naps, we discussed pathophys of disease today
CM consult for home NIV set up
Needs pulm/sleep OP FU
Speech eval
Encouraged PT/OT, OOB
Assessment
-
74-year-old man with past medical history noted. Admitted with change in mental status/unresponsiveness. Found to have hypercapnic respiratory failure. Improved clinically in regards to mental status. Chest x-ray showed extensive left-sided
infiltrate with possible subsegmental atelectasis/pneumonia.
Acute on chronic hypercapnic respiratory failure
ABG 06/17/2024: 7.28//70
Pneumonia-likely bacterial. Cannot rule out aspiration
Extensive left-sided infiltrate with likely subsegmental atelectasis based on the left shift of the mediastinum.
Hyperglycemia
Possible TIA
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
Admitted to the hospital with left gastric artery bleeding status post embolization 06/2023-of anticoagulation since that
Chronic PEG
Chronic anemia
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
Left Lung Met s/p Wedge Resection
Prostate Cancer s/p XRT
Autonomic Insufficiency with Labile Blood Pressure
Paroxysmal Atrial Flutter, on apixaban
Bronchiectasis
Chronic Aspiration Pneumonitis
Dyslipidemia
Former Smoker (Quit 13 years ago. Smoke cigars prior to that)
DNR
Assessment and plan:
Clinical picture likely explained by left-sided pneumonia with possible segmental atelectasis. Suspect aspiration event.
Appears that the patient does have chronic hypercapnic respiratory failure. Decompensated due to pneumonia
Speech eval was recommended, order placed
Mental status back to baseline
ABG improved 06/18/2024:7.31/98/76.
Continue BiPAP therapy bedtime and as needed.
Avoid sedatives.
Repeat ABG once more tomorrow 06/19/2024
He demonstrates severe chronic CO2 retention likely related to upper airway compromise from throat cancer s/p radiation
We discussed need for NIV use at home
CM consult for home set up
He does not follow with OP sleep/pulmonary
Continue oxygen supplementation to maintain pulse ox above 90%.
Patient is chronically on oxygen at home.
4L use at home noted, recently increased
Currently at 6 L, wean down as tolerated
Chest x-ray this morning 06/19 reviewed: improvement of L sided consolidation without complete resolution
Continue secretion clearance interventions: Acapella device/vest therapy
Nebulizers: Pulmicort/Atrovent.
Albuterol as needed.
Continue to follow radiographically.
Continue antibiotics: Ampicillin sulbactam.
Infectious disease has been consulted. Correspondence reviewed.
MRSA screening positive. Vancomycin was added.
Blood cultures-negative, no sputum sent
Head of the bed elevation
Tube feedings via PEG tube-patient is a status post throat cancer status post chemoradiation.
Maintain NPO status
Possible TIA. Neurologically back to baseline
Neurology following the patient
Management per primary team and neurology
DVT prophylaxis
Encouraged OOB/PT/OT
Deconditioning noted
Subjective Data
-
Date of Service:
Date of Service: June 19, 2024
Chief Complaint: Pulmonary Follow Up (Pneumonia/hypercapnic respiratory failure)
Subjective:
Sitting in chair, no new complaints
Remains on 6L NC, BIPAP at night
Baseline speech impairment following neck radiation
Objective Data
Data Reviewed
Vital Signs / I&O / Oxygen:
Vital Signs
Temp Pulse Resp BP Pulse Ox
99.5 F 81 30 146/71 93
06/19/24 07:24 06/19/24 07:44 06/19/24 07:44 06/18/24 19:37 06/19/24 03:18
Intake and Output
06/18/24 06/19/24 06/20/24
06:59 06:59 06:59
Output Total 450 / 450 450 / 450
Balance -450 / -450 -450 / -450
SaO2 93
Nasal Cannula flow liters per 6
minute
Physical Exam
General: Respiratory Distress (n), Comfortable and Other (thin)
HEENT: Normocephalic, Anicteric and Other (speech impairment noted)
Cardiovascular: S1-S2 and Regular Rhythm
Respiratory: Wheeze (n) and Rhonchi (Scattered bilaterally R>L, decreased BS on L)
GI: Soft, Non Distended, Non Tender and Feeding Tube
Neurology: Awake, Alert, Oriented, AO x 3, No Motor Deficits and Other (overall weakness noted)
Skin: Warm, Dry and Other (pale appearing)
Labs/Micro/Reports
Lab Data
06/19/24 04:07
06/19/24 04:07
Laboratory Results
06/19/24
03:44
pH 7.31 L
pCO2 96 H*
pO2 78 L
HCO3 48.3 H*
O2 Delivery Level
Microbiology
06/17/24 08:51 Blood/Venous Blood Culture - Preliminary
No Growth in 48 hours- Final report to follow
--- NOTE | 2024-06-19 10:13 | W.PN.GI.CBS2 ---
Today's Communication / Plan
-
I reviewed with IR. 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
This bleeding site was adequately treated and ASA and plavix should be OK to use at this time in setting of possible acute CVA
Hgb stable in 8 range
Will sign off. Please call back if needed
Assessment / Plan
-
Summary: 74yo male found unresponsive brought by EMS, left sided facial droop. Seen by Neurology and requesting OK for ASA/plavix. Has hx abdominal hematoma from L gastric artery pseudoaneurysm requiring embolization in June 2023.
Anticoagulation was stopped following that episode. He had recent PEG change a month prior to that and there was no bleeding from PEG and bleeding site was away from PEG entry or bumper. Hgb on admission 10.7, down to 8.5 after admission without
signs of bleeding
Impression:
Unresponsiveness, L sided facial droop
June/2023 abdominal hematoma from L gastric artery pseudoaneurysm s/p embolization of actively bleeding branch of L gastric artery
throat cancer s/p chemo/radiation, chronic slurred speech
prostate CA s/p XRT
PEG for chronic aspiration
Subjective
Subjective
Date of Service: June 19, 2024
ASA/plavix given last night. No complaints
Objective
Data Reviewed
Laboratory Data:
Laboratory Results
06/19/24 04:07
06/19/24 04:07
Laboratory Results
PT 12.2 Sec (11.4-14.6) 06/17/24 08:51
INR 0.92 06/17/24 08:51
APTT 27.0 Sec (23.4-35.0) 06/17/24 08:51
Magnesium 2.3 mg/dl (1.6-2.3) 06/17/24 16:23
Total Bilirubin 0.2 mg/dl (0.2-1.3) 06/19/24 04:07
AST 29 U/L (17-59) 06/19/24 04:07
ALT 29 U/L (0-50) 06/19/24 04:07
Alkaline Phosphatase 66 U/L (38-126) 06/19/24 04:07
Vital Signs and I&O:
Vital Signs
Temp Pulse Resp BP Pulse Ox
99.5 F 81 30 146/71 93
06/19/24 07:24 06/19/24 07:44 06/19/24 07:44 06/18/24 19:37 06/19/24 03:18
I&O
06/18/24 06/19/24 06/20/24
06:59 06:59 06:59
Output Total 450 / 450 450 / 450
Balance -450 / -450 -450 / -450
Physical Exam
Physical Exam
GI: Non Distended
--- NOTE | 2024-06-19 10:54 | EEG.RPT ---
Electroencephalogram Report
Recording
Date of EE06/19/24
Type of EEG: Routine
Length of EEG recordin minutes
Done with Video Recording: Yes
Patient Status: Inpatient
Recording Conditions: Awake, Drowsy and Asleep
Hyperventilation Performed: No
Photic Stimulation Performed: Yes
Report
GREATER THAN 1 HOUR EEG REPORT
EEG INTERPRETATION:
Mildly abnormal EEG for age in wakefulness through sleep due to mild diffuse bihemispheric slowing
CLINICAL CORRELATION:
This study was suggestive of mild diffuse cortical dysfunction without focal abnormality. No seizures were recorded.
Clinical correlation is advised.
METHODS:
A 21 channel digitized electroencephalogram (EEG) was performed at the bedside. The 10/20 international system of electrode placement was used with ECG and lateral/vertical eye movements recorded. The Samares system was utilized.
QUALITY OF STUDY:
Fair due to beta/muscle artifact frontally
ELECTROENCEPHALOGRAPHER IMPRESSION(S):
Background
Amplitude: Unremarkable
Anterior-Posterior Organization: Fair, good at times
Maximum: Theta
Asymmetry: None
Sleep
Drowsiness present
Stage 1 sleep recorded
Photic Stimulation
Failed to activate the record
ECG
Normal sinus rhythm
[2024-06-19 12:48] LABS: Glucose - Point of Care 116 mg/dl (70-99)
[2024-06-19] MEDS: NOVOLOG FLEXPEN-LOW RESISTANCE SC ×2 (13:08→18:07)
[2024-06-19] MEDS: VANCOCIN 200 IV (13:56)
--- NOTE | 2024-06-19 15:41 | CM ---
Patient seen bedside with , initial assessment completed. Patient resides in a two story home, 13 steps to enter. Patient reports history with [facility], denies SNF. Patient has home O2, unsure of provider. Patient PCP Rogelio Skinner, pharmacy is [facility]
in [place], patient confirms prescription coverage through insurance. CM received consult for home NIV setup. Clinicals faxed to Adrianna at [facility]. CM discussed PT recommendations of home health, patient agreeable to referral to [facility], placed in
[facility]. CM will continue to follow for all discharge planning needs.
Plan; home with [facility] when medically stable, clinicals sent to [facility] for home NIV.
[2024-06-19 17:38] LABS: Glucose - Point of Care 133 mg/dl (70-99)
[2024-06-19 23:46] LABS: Glucose - Point of Care 162 mg/dl (70-99)
[2024-06-20] VITALS (17 sets, daily range): BP systolic 121–200; BP diastolic 76–113; PULSE 2–80; BMI 20.9
--- NOTE | 2024-06-20 01:25 | PTCARENOTE ---
Addendum entered by Ijeoma Ibrahim RN 06/20/24 04:34:
PT coming off BiPAP around 0200 refusing to put back on. Education given. Pt placed on Midflow 15L then to 10L SPO2 at 92% RR18 at this time
Addendum entered by Ijeoma Ibrahim RN 06/20/24 04:25:
PT having SOB and slight pain, RR int he 40's. RT giving neb treatment. Night PICK UP MAN made aware, order for Morphine for sob/pain given (see mar). TF changed and restarted at 45ml/hr 25ml flush per discussion with night PICK UP MAN, Tatyana Bolanos
Original Note:
Pt having complaints of feeling full. TF residual checked, 120ml. Night PICK UP MAN made aware. Orders to hold for 3Hr, restart at 45ml TF Flush 25ml.
[2024-06-20] MEDS: VENTOLIN NEBULES 2.5 MG INH (03:36)
[2024-06-20] MEDS: MORPHINE SULFATE 2 MG IV (03:49)
[2024-06-20 04:00] LABS: % Basophils 0.2 % (0-2); % Immature Granulocytes 0.9 % (0-0.5); % Lymphocytes 7.3 % (20.5-51.1); % Monocytes 8.2 % (1.7-9.3); % Neutrophils 82.4 % (42.2-75.2); Absolute Eosinophils 0.1 10^3/uL (0-0.7); Absolute Immature Granulocytes 0.1 10^3/uL (0-0.05); Absolute Lymphocytes 0.7 10^3/uL (1.2-3.4); Absolute Monocytes 0.8 10^3/uL (0.1-0.6); Absolute Neutrophils 8.4 10^3/uL (1.4-6.5); Hematocrit 27.7 % (39.0-52.0); Hemoglobin 8.9 g/dL (13.0-18.0); Mean Corp Hgb Conc. 32.1 g/dL (33.0-37.0); Mean Corpuscular Hgb 33.3 pg (27.0-31.0); Mean Corpuscular Volume 103.7 fL (80.0-94.0); Mean Platelet Volume 10.3 fL (7.4-10.4); Nucleated Red Blood Cells % 0 % (-); Platelet Count 152 10^3/uL (130-400); Red Blood Cell Count 2.67 10^6/uL (4.70-6.10); Red Cell Dist. Width 11.6 % (11.5-14.5); White Blood Cell Count 10.2 10^3/uL (4.8-10.8)
[2024-06-20 04:21] LABS: Vancomycin Random 10.9 ug/ml
[2024-06-20 04:27] LABS: ALT (SGPT) 37 U/L (0-50); AST (SGOT) 35 U/L (17-59); Albumin 3.3 g/dl (3.5-5.0); Alkaline Phosphatase 76 U/L (38-126); Blood Urea Nitrogen 38 mg/dl (9-20); Calcium 9.4 mg/dl (8.4-10.2); Chloride 94 mmol/L (98-107); Estimated Creatinine Clearance 96 ml/min; Glucose 118 mg/dl (70-99); Potassium 4.1 mmol/L (3.5-5.1); Sodium 142 mmol/L (135-145); Total Bilirubin 0.4 mg/dl (0.2-1.3); Total Protein 5.8 g/dl (6.3-8.2); eGFR > 60.00
[2024-06-20 04:35] LABS: Carbon Dioxide 44 mmol/L (22-30)
[2024-06-20] MEDS: UNASYN IV ×3 (05:25→17:36)
[2024-06-20 05:42] LABS: Glucose - Point of Care 120 mg/dl (70-99)
[2024-06-20] MEDS: NOVOLOG FLEXPEN-LOW RESISTANCE SC ×3 (05:43→19:15)
--- NOTE | 2024-06-20 06:38 | W.PN.HOSP.TC ---
Today's Communication/Plan
-
need for DAPT with MRI showing chronic changes only, I reached out to neurology to re-evaluate. Holding aspirin and Plavix for now
Assessment / Plan
Assessment / Plan
Physical Exam
General: Not in Acute Distress
HEENT: Normocephalic
Respiratory: Decreased Breath Sounds and Scattered Rhonchi Bilaterally
Cardiac: S1/S2 and Regular Rhythm
GI: Soft, Non Tender and Normal Bowel Sounds
Musculoskeletal: No Cyanosis and No Edema
Skin: Warm and Dry
Neuro: Awake, Alert, AAO to self and surroundings, garbled speech ( chronic), he followed commands.
Psych: Calm

Assessment/Plan
# Sepsis/septic shock present on admission
Acute on chronic hypoxic and hypercapnic respiratory failure
Chronic Home Oxygen Use (2 to 4 L)
Suspected Aspiration Pneumonia
History of MRSA
After evaluating the patient and ruling out acute stroke. Patient seem to have suffered septic shock secondary to aspiration pneumonia
Blood pressure stabilized. Status post IV fluid
Chest radiography showed improvement in pneumonia and infiltration
Appreciate ID and pulmonary input
-Currently on 5 to 6 L midflow oxygen; at home is usually on 2 to 4 L of oxygen
-ABG noted with significantly high CO2 with high bicarb as well, repeat ABG improved.
- s/p BiPAP therapy bedtime and as needed.
-Avoid sedating agents
-Per imaging, extensive left-sided infiltrate with likely subsegmental atelectasis based on the left shift of the mediastinum. Repeat chest x ray 06/19 : Slightly improved left pleural effusion and diffuse left lung pneumonia.
-Continue Vancomycin and Unasyn
-Continue oxygen supplementation to maintain pulse oximetry above 90%.
-Breathing treatments/bronchodilators, acapella, and VEST therapy
# Toxic encephalopathy likely due to hypotension.
Unresponsiveness with hypotension and bradypnea, suspected secondary to respiratory failure and hypercapnia
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
Chronic slurred speech
-When EMS arrived they found a systolic blood pressure 40 and respiratory rate of 4; patient's pulse ox was in the single digits
- No evidence of drug induced sedation.
-ABG noted
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
basilar artery.
-Troponins elevated but with no significant increase
Im concerned about need for DAPT with MRI showing chronic changes only, I reached out to neurology to re-evaluate
EEG, no seizure activity
-Continue Atorvastatin
Per GI: GI doctor reviewed with IR. 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
This bleeding site was adequately treated and ASA and Plavix should be OK to use if deemed necessary by neurology.
#Positive troponin
not significant or c/w myocardial injury
No chest pains
# Left lung metastasis status post wedge resection
Prostate cancer status post radiation
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
Stable
#PEG-Dependent/Chronic aspiration status post PEG dependent for feeding
History of Throat Cancer s/p XRT and Chemo
- Patient uses Jevity 1.5 at home. Five 8oz cans daily with water flushes before and after meals and meds.
- Continue home tube feed Jevity 1.5 at 20 mL/hr and increase by 10 with goal of 55
- consulted dietary for any updated tube feeding recommendations
# Bronchiectasis (on 2 to 4 L of oxygen at home)
Chronic Aspiration Pneumonitis
- Patient normally sees Dr. Powers outpatient
- Continue usual inhaled medication regimen.
- Aspiration precautions / HOB restrictions.
- Follow for any new / worsening symptoms.
- Patient is strict NPO - takes all meds / meals via PEG.
#Paroxysmal Atrial Flutter
- No chest pain, no palpitations. Continue metoprolol with holding parameters.
- Patient's stated on 06/17/24 that patient does not take Eliquis anymore due to concerns over bleeding risk
#Cachexia without malnutrition
#Acute on chronic anemia due to Anemia of Chronic Disease
- Hgb 8
no active bleeding
History of MRSA
Dyslipidemia
Hypertension
Autonomic Insufficiency with Labile Blood Pressure
Former Smoker (Quit 13 years ago. Smoke cigars prior to that)
DVT Prophylaxis: Thrombo guards and dual anti-plts therapy
Code Status: Full
Total time spent to see the patient, examine the patient on the floor, review data and lab results, discuss treatment plan with patient, neurologist, nursing staff around 59 minutes
Anticipated Discharge: 24 - 48 hours
Subjective/Interval History
-
Date of Service: June 20, 2024
Pt has no complaints
No fevers over night
Objective Data
-
Labs:
Laboratory Results
06/20/24
03:35
WBC 10.2
Hgb 8.9 L
Hct 27.7 L
Plt Count 152 D
Sodium 142
Potassium 4.1
Chloride 94 L
Carbon Dioxide 44 H
BUN 38 H
Creatinine 0.6 L
Glucose 118 H
Calcium 9.4
Total Bilirubin 0.4
AST 35
ALT 37
Alkaline Phosphatase 76
Vital Signs:
Vital Signs
Temp Pulse Resp BP Pulse Ox
98.3 F 78 16 151/80 98
06/20/24 03:48 06/20/24 06:00 06/20/24 06:00 06/20/24 06:00 06/20/24 06:00
I&O
06/18/24 06/19/24 06/20/24
06:59 06:59 06:59
Intake Total 1100 / 1100
Output Total 450 / 450 450 / 450 600 / 600
Balance -450 / -450 -450 / -450 500 / 500
[2024-06-20] MEDS: PULMICORT 0.25 MG INH ×2 (07:13→19:33)
[2024-06-20] MEDS: ATROVENT NEBULES 0.5 MG INH ×2 (07:13→19:32)
[2024-06-20] MEDS: LOPRESSOR 50 MG PO ×2 (08:28→20:38)
[2024-06-20] MEDS: COLACE LIQUID 100 MG TUBE ×2 (08:29→20:38)
[2024-06-20] MEDS: LIPITOR 20 MG TUBE (08:29)
--- NOTE | 2024-06-20 08:58 | PHA.VAN.FU ---
Vancomycin Assessment / Plan
- Assessment
Renal Function: Stable (BUN trending down)
WBC's are: WNL
In the past 24 hrs, patient has been: Afebrile
Concomitant Antimicrobials: ampicillin/sulbactam
- Assessment - Therapeutic Drug Monitoring
Random Level: 10.9 - drawn ~13.5H after previous dose of 1000mg
- Dosing Plan
Dosing by Level: Re-dose today (Vanc 750mg x1 now and at 1800)
Dosing Comments: trial of BID dosing but may still require Q24H interval
- Monitoring Plan
Random Level: 06/21 06
- Follow Up
Pharmacy will continue to follow.
Vancomycin Follow UP
- -
Patient Age: 74
Patient Sex: Male
Vancomycin Day #: 4
Indication: Pulmonary/Respiratory
Requesting Provider: Dr. Harris
Pertinent Antimicrobial Allergies:
NKDA
Height / Weight:
Height 5 ft 9 in
Actual Weight 64 kg
Pertinent Past Medical History: PEG
- Vital Signs / Lab Results
Temp Pulse Resp BP Pulse Ox
97.8 F 82 17 149/83 94
06/20/24 07:54 06/20/24 08:28 06/20/24 08:00 06/20/24 08:28 06/20/24 08:00
Lab Results - Hematology
06/17/24 06/18/24 06/19/24
08:51 04:53 04:07
WBC 12.8 H 10.5 9.5
06/20/24
03:35
WBC 10.2
Lab Results - Chemistry
06/17/24 06/18/24 06/19/24
08:51 04:53 04:07
BUN 49 H 45 H 40 H
Creatinine 1.0 0.7 0.7
Estimated Creat Clear 81 84
Albumin 4.2 3.2 L 3.2 L
06/20/24
03:35
BUN 38 H
Creatinine 0.6 L
Estimated Creat Clear 96
Albumin 3.3 L
06/17/24 06/17/24
08:51 13:26
Lactic Acid 3.0 H 0.9
Microbiology Results
06/17/24 08:51 Blood Culture - Preliminary
Blood/Venous No Growth in 48 hours- Final report to follow
Therapeutic Drug Monitoring
Random Vancomycin 10.9 ug/ml 06/20/24 03:35
--- NOTE | 2024-06-20 09:16 | W.PN.PUL3 ---
Today's Communication / Plan
-
Home DME set up Trilogy settings likely AC 350/20/30%/5+
Repeat VBG this AM
Continue IV abx
Wean O2 as able back to baseline
CM to follow up on DME set up
PT eval for placement, likely to need SNF
Assessment
-
74-year-old man with past medical history noted. Admitted with change in mental status/unresponsiveness. Found to have hypercapnic respiratory failure. Improved clinically in regards to mental status. Chest x-ray showed extensive left-sided
infiltrate with possible subsegmental atelectasis/pneumonia.
Acute on chronic hypercapnic respiratory failure
ABG 06/17/2024: 7.28/103/70
Pneumonia-likely bacterial. Cannot rule out aspiration
Extensive left-sided infiltrate with likely subsegmental atelectasis based on the left shift of the mediastinum.
Hyperglycemia
Possible TIA
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
Admitted to the hospital with left gastric artery bleeding status post embolization 06/2023-of anticoagulation since that
Chronic PEG
Chronic anemia
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
Left Lung Met s/p Wedge Resection
Prostate Cancer s/p XRT
Autonomic Insufficiency with Labile Blood Pressure
Paroxysmal Atrial Flutter, on apixaban
Bronchiectasis
Chronic Aspiration Pneumonitis
Dyslipidemia
Former Smoker (Quit 13 years ago. Smoke cigars prior to that)
DNR
Assessment and plan:
Clinical picture likely explained by left-sided pneumonia with possible segmental atelectasis. Suspect aspiration event.
Appears that the patient does have chronic hypercapnic respiratory failure. Decompensated due to pneumonia
Speech eval was recommended, order placed
Mental status back to baseline
ABG improved 06/18/2024:7.31/98/76.
Continue BiPAP therapy bedtime and as needed.
Avoid sedatives.
Repeat ABG once more tomorrow 06/19/2024
He demonstrates severe chronic CO2 retention likely related to upper airway compromise from throat cancer s/p radiation
We discussed need for NIV use at home
CM consult for home set up
He does not follow with OP sleep/pulmonary
Continue oxygen supplementation to maintain pulse ox above 90%.
Patient is chronically on oxygen at home.
4L use at home noted, recently increased
Currently at 6 L, wean down as tolerated
Chest x-ray this morning 06/19 reviewed: improvement of L sided consolidation without complete resolution
Continue secretion clearance interventions: Acapella device/vest therapy
Nebulizers: Pulmicort/Atrovent.
Albuterol as needed.
Continue to follow radiographically.
Continue antibiotics: Ampicillin sulbactam.
Infectious disease has been consulted. Correspondence reviewed.
MRSA screening positive. Vancomycin was added.
Blood cultures-negative, no sputum sent
Head of the bed elevation
Tube feedings via PEG tube-patient is a status post throat cancer status post chemoradiation.
Maintain NPO status
Speech eval
Possible TIA. Neurologically back to baseline
Neurology following the patient
Management per primary team and neurology
DVT prophylaxis
Encouraged OOB/PT/OT
Deconditioning noted
Subjective Data
-
Date of Service:
Date of Service: June 20, 2024
Chief Complaint: Pulmonary Follow Up (Pneumonia/hypercapnic respiratory failure)
Subjective:
no new events, remains on 5-6L NC
on BIPAP, tolerating
at bedside
Objective Data
Data Reviewed
Vital Signs / I&O / Oxygen:
Vital Signs
Temp Pulse Resp BP Pulse Ox
97.8 F 82 17 149/83 94
06/20/24 07:54 06/20/24 08:28 06/20/24 08:00 06/20/24 08:28 06/20/24 08:00
Intake and Output
0706/20/24 06/21/24
06:59 06:59 06:59
Intake Total 1100 / 1100
Output Total 450 / 450 600 / 600
Balance -450 / -450 500 / 500
SaO2 94
Nasal Cannula flow liters per 6
minute
Physical Exam
General: Respiratory Distress (n), Comfortable and Other (thin, overall deconditioned/weak)
HEENT: Normocephalic, Anicteric and Other (speech impairment noted)
Cardiovascular: S1-S2 and Regular Rhythm
Respiratory: Wheeze (n) and Rhonchi (Scattered bilaterally R>L, decreased BS on L)
GI: Soft, Non Distended, Non Tender and Feeding Tube
Neurology: Awake, Alert, Oriented, AO x 3, No Motor Deficits and Other (overall weakness noted)
Skin: Warm, Dry and Other (pale appearing)
Labs/Micro/Reports
Lab Data
06/20/24 03:35
06/20/24 03:35
Microbiology
06/17/24 08:51 Blood/Venous Blood Culture - Preliminary
No Growth in 72 hours- Final report to follow
[2024-06-20] MEDS: VANCOCIN 150 IV ×2 (09:45→18:38)
--- NOTE | 2024-06-20 11:23 | CM ---
CM spoke with Dr. Flanagan, obtained signature on the RX for NIV. Records and Rx sent to [facility] for set up.
Asael has been on tube feeding prior to this admission; Jevity 1.5, 5 8oz. cans per day. He has been seen by PT and OT and notes indicate likelihood of Asael being able to return home at discharge. He is known to [facility] and agreeable to
their services at discharge. Referral sent via [facility] and accepted for service by [facility].
Plan: Discharge to home with [facility] and new NIV via [facility] to be delivered.
PCP: Rogelio Skinner
Pharmacy: [facility]
--- NOTE | 2024-06-20 12:16 | VNURNOTE ---
Home Health Liaison spoke with patient's spouse Mini over the phone. Discussed [facility] nurse/therapy, visits, schedule. Patient and spouse are agreeable and understand that visits at home will be 2-3 x per week to assess and teach medical
management. Spouse stated patient has had [facility] in the past. She is aware that [facility] will contact them for start of care a few days after discharge from . CM already faxed info to [facility] for NIV DME. Spouse thinks that the patient receives Jevity
through [facility]. [facility] referral updated in [facility].
[2024-06-20 12:25] LABS: Glucose - Point of Care 137 mg/dl (70-99)
[2024-06-20] MEDS: SENNA SYRUP 8.8 MG TUBE (12:34)
[2024-06-20] MEDS: MIRALAX 17 GRAMS TUBE (12:34)
[2024-06-20 12:40] LABS: Venous Blood Gas B.E. 16.3 mmol/L (-4 to +4); Venous Blood Gas HCO3 47.7 mmol/L (22-27); Venous Blood Gas O2 Sat % 94.9 %; Venous Blood Gas pO2 73 mmHg (30-50)
[2024-06-20 12:48] LABS: Venous Blood Gas pCO2 > 115 mmHg (35-48)
[2024-06-20 18:13] LABS: Glucose - Point of Care 140 mg/dl (70-99)
--- NOTE | 2024-06-20 19:19 | PTCARENOTE ---
Tolerated Bipap this am till noon. Oral care completed- self utilizes yankuer to assist with secretions. VBG drawn as ordered and results relayed to providers. Placed back on bipap this afternoon- asked to come off x1 but offered back rub/ bathed
and calmed down, currently still tolerating. He does desat with any exertion, reading 79-80% requires increased o2 and about 5 min to recover - did on midflow tubing x1 today and 1x on bipap.
[2024-06-20 20:04] LABS: B.E. 21.9 mmol/L; O2 Saturation % 99.5 % (94-98); PO2 93 mmHg (83-108)
[2024-06-20 20:09] LABS: HCO3 49.6 mmol/L (21-28); PCO2 80 mmHg (35-48)
[2024-06-20] MEDS: TYLENOL 650 MG PO (21:11)
[2024-06-20 23:57] LABS: Glucose - Point of Care 152 mg/dl (70-99)
[2024-06-21] VITALS (20 sets, daily range): BP systolic 94–191; BP diastolic 66–111; PULSE 2–85; O2SAT 97–98; BMI 21.5
[2024-06-21] MEDS: UNASYN IV ×4 (00:12→17:32)
--- NOTE | 2024-06-21 02:54 | PTCARENOTE ---
Repeat ABGs done at 1999. Critical results relayed to covering SPECIFICATION WRITER [employer]. Off Bipap from 1999 to . Pt forgetful overnight, attempted to get oob without calling for assistance. Thorough education provided on utilizing call vigil and fall
precautions. Pt verbalized understanding.
c/o LUQ Abd pain, medicated with Tylenol with good relief. TF residual 80mL. Pt able to have a BM in the bathroom. Bloody sputum continues; using Yankauer independently.Tele showing NSR. Bed alarm set for safety. Call vigil and tray table within
reach.
--- NOTE | 2024-06-21 06:13 | PTCARENOTE ---
Heart monitor alarming HR up to 140s. Pt reports some chest discomfort and appears anxious. BP 140/96. Emotional support given. Tele reading Afib. EKG done and in chart. RAFAEL James made aware. HR able to decrease to 90-100s without intervention.
Pt appears to have fallen asleep with bipap on, respirations even and unlabored. Call vigil left within reach.
--- NOTE | 2024-06-21 06:20 | W.PN.UPDATE ---
Addendum entered and electronically signed by RAFAEL Beard 06/21/24 06:59:
hx of PAF, ASA, Plavix on hold, on Metoprolol 100mg PO BID
Original Note:
Update Note
Progress Note Update
RN notified HOSIERY OPERATOR, Patient HR went up to 140's, came back to 106, with mild chest discomfort. BP 140/96, 30, 99% Bipap, Afebrile, EKG Afib with RVR, previous EKG on 06/17 NSR with 1st degree AV block. Patient refuses chest pain or Shortness of breath
at present. will order BMP, mag, Troponin, CBC. May need Dentist Attendant Consult.
[2024-06-21] MEDS: NOVOLOG FLEXPEN-LOW RESISTANCE SC ×3 (06:40→17:32)
--- NOTE | 2024-06-21 06:43 | W.PN.HOSP.TC ---
Today's Communication/Plan
-
Increase dose of Metoprolol. Echo on 06/19 , normal LVEF 55 % with no wall motion abnormalities
Patient refuses SNF
He might benefit from SNF until Trilogy set up at home
Will consult showcase trimmer
Assessment / Plan
Assessment / Plan
Physical Exam
General: Not in Acute Distress
HEENT: Normocephalic
Respiratory: Decreased Breath Sounds and Scattered Rhonchi Bilaterally
Cardiac: S1/S2 and Regular Rhythm
GI: Soft, Non Tender and Normal Bowel Sounds
Musculoskeletal: No Cyanosis and No Edema
Skin: Warm and Dry
Neuro: Awake, Alert, AAO to self and surroundings, garbled speech ( chronic), he followed commands.
Psych: Calm

Assessment/Plan
# Sepsis/septic shock present on admission
Acute on chronic hypoxic and hypercapnic respiratory failure
Severe chronic CO2 retention
Chronic Home Oxygen Use (2 to 4 L)
Aspiration Pneumonia
History of MRSA
After evaluating the patient and ruling out acute stroke. Patient seem to have suffered septic shock secondary to aspiration pneumonia
Blood pressure stabilized. Status post IV fluid
Chest radiography showed improvement in pneumonia and infiltration
Appreciate ID and pulmonary input
-Currently on 5 to 6 L midflow oxygen; at home is usually on 2 to 4 L of oxygen
-ABG noted with significantly high CO2 with high bicarb as well, repeat ABG improved with BIpap.
- s/p BiPAP therapy bedtime and as needed.
-Avoid sedating agents
-Per imaging, extensive left-sided infiltrate with likely subsegmental atelectasis based on the left shift of the mediastinum. Repeat chest x ray 06/19 : Slightly improved left pleural effusion and diffuse left lung pneumonia.
-Continue Vancomycin and Unasyn
-Continue oxygen supplementation to maintain pulse oximetry above 90%.
-Breathing treatments/bronchodilators, acapella, and VEST therapy
# Toxic encephalopathy likely due to hypotension.
Unresponsiveness with hypotension and bradypnea, suspected secondary to respiratory failure and hypercapnia
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
Chronic slurred speech
-When EMS arrived they found a systolic blood pressure 40 and respiratory rate of 4; patient's pulse ox was in the single digits
- No evidence of drug induced sedation.
-ABG noted
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
basilar artery.
-Troponins elevated but with no significant increase
d/w neurology, no indication for DAPT with MRI showing chronic changes only.
EEG, no seizure activity
-Continue Atorvastatin
Per GI: GI doctor reviewed with IR. 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
This bleeding site was adequately treated and ASA and Plavix should be OK to use if deemed necessary by neurology.
#Positive troponin
not significant or c/w myocardial injury
Echo normal with no wall motion abnormalities
No chest pains
# Left lung metastasis status post wedge resection
Prostate cancer status post radiation
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
Stable
#PEG-Dependent/Chronic aspiration status post PEG dependent for feeding
History of Throat Cancer s/p XRT and Chemo
- Patient uses Jevity 1.5 at home. Five 8oz cans daily with water flushes before and after meals and meds.
- Continue home tube feed Jevity 1.5 at 20 mL/hr and increase by 10 with goal of 55
- consulted dietary for any updated tube feeding recommendations
# Bronchiectasis (on 2 to 4 L of oxygen at home)
Chronic Aspiration Pneumonitis
- Patient normally sees Dr. Powers outpatient
- Continue usual inhaled medication regimen.
- Aspiration precautions / HOB restrictions.
- Follow for any new / worsening symptoms.
- Patient is strict NPO - takes all meds / meals via PEG.
#Paroxysmal Atrial Flutter
uncontrolled, increase dose of Metoprolol
- No chest pain, no palpitations. Continue metoprolol with holding parameters.
- Patient's stated on 06/17/24 that patient does not take Eliquis anymore due to concerns over bleeding risk
#Cachexia without malnutrition
#Acute on chronic anemia due to Anemia of Chronic Disease
- Hgb 8
no active bleeding
History of MRSA
Dyslipidemia
Hypertension
Autonomic Insufficiency with Labile Blood Pressure
Former Smoker (Quit 13 years ago. Smoke cigars prior to that)
DVT Prophylaxis: Thrombo guards and dual anti-plts therapy
Code Status: Full
Total time spent to see the patient, examine the patient on the floor, review data and lab results, discuss treatment plan with patient, neurologist, nursing staff around 59 minutes
Anticipated Discharge: 24 - 48 hours
Subjective/Interval History
-
Date of Service: June 21, 2024
Was restless last night
No fevers
Used Bipap
Objective Data
-
Labs:
Laboratory Results
06/20/24 06/21/24
19:58 06:30
WBC Pending
Hgb Pending
Hct Pending
Plt Count Pending
HCO3 49.6 H*
Sodium Pending
Potassium Pending
Chloride Pending
Carbon Dioxide Pending
BUN Pending
Creatinine Pending
Glucose Pending
Calcium Pending
Vital Signs:
Vital Signs
Temp Pulse Resp BP Pulse Ox
98.4 F 103 29 130/111 100
06/21/24 02:40 06/21/24 06:07 06/21/24 06:07 06/21/24 06:07 06/21/24 06:07
I&O
06/19/24 06/20/24 06/21/24
06:59 06:59 06:59
Intake Total 1100 / 1100 1890 / 1890
Output Total 450 / 450 600 / 600 1000 / 1000
Balance -450 / -450 500 / 500 890 / 890
[2024-06-21 06:51] LABS: Glucose - Point of Care 110 mg/dl (70-99)
[2024-06-21 07:16] LABS: Magnesium 2.1 mg/dl (1.6-2.3)
[2024-06-21 07:19] LABS: Blood Urea Nitrogen 40 mg/dl (9-20); Calcium 9.1 mg/dl (8.4-10.2); Chloride 90 mmol/L (98-107); Estimated Creatinine Clearance 74 ml/min; Glucose 104 mg/dl (70-99); Potassium 4.3 mmol/L (3.5-5.1); Sodium 139 mmol/L (135-145); eGFR > 60.00
[2024-06-21 07:30] LABS: Carbon Dioxide 43 mmol/L (22-30)
[2024-06-21 07:41] LABS: Troponin I 0.016 ng/ml
[2024-06-21] MEDS: PULMICORT 0.25 MG INH ×2 (07:44→19:45)
[2024-06-21] MEDS: ATROVENT NEBULES 0.5 MG INH ×2 (07:44→19:45)
[2024-06-21 07:54] LABS: Hemoglobin 8.4 g/dL (13.0-18.0); Mean Corp Hgb Conc. 32.3 g/dL (33.0-37.0); Mean Corpuscular Hgb 33.7 pg (27.0-31.0); Mean Corpuscular Volume 104.4 fL (80.0-94.0); Mean Platelet Volume 10.2 fL (7.4-10.4); Platelet Count 157 10^3/uL (130-400); Red Blood Cell Count 2.49 10^6/uL (4.70-6.10); Red Cell Dist. Width 11.6 % (11.5-14.5); White Blood Cell Count 6.1 10^3/uL (4.8-10.8)
--- NOTE | 2024-06-21 08:55 | PHA.VAN.FU ---
Vancomycin Assessment / Plan
- Assessment
Renal Function: Stable
WBC's are: WNL
In the past 24 hrs, patient has been: Afebrile
Concomitant Antimicrobials: ampicillin/sulbactam
- Assessment - Therapeutic Drug Monitoring
Random Level: 16 - drawn ~10H after previous dose of 750mg
Received 2 doses of 750mg yesterday
Significant accumulation in level noted
Remains unclear if patient appropriate for Q12 vs Q24H interval and BUN remains elevated
- Dosing Plan
Dosing by Level: Re-dose today (Vanc 1250mg)
Dosing Comments: trial of higher mg/kg (~19mg/kg) once daily
- Monitoring Plan
Random Level: 06/22 06
- Follow Up
Pharmacy will continue to follow.
Vancomycin Follow UP
- -
Patient Age: 74
Patient Sex: Male
Vancomycin Day #: 5
Indication: Pulmonary/Respiratory
Requesting Provider: Dr. Harris
Pertinent Antimicrobial Allergies:
NKDA
Height / Weight:
Height 5 ft 9 in
Actual Weight 66 kg
Pertinent Past Medical History: PEG
- Vital Signs / Lab Results
Temp Pulse Resp BP Pulse Ox
98.4 F 101 28 130/111 96
06/21/24 02:40 06/21/24 07:49 06/21/24 07:49 06/21/24 06:07 06/21/24 07:49
Lab Results - Hematology
06/19/24 06/20/24 06/21/24
04:07 03:35 06:30
WBC 9.5 10.2 6.1
Lab Results - Chemistry
06/19/24 06/20/24 06/21/24
04:07 03:35 06:30
BUN 40 H 38 H 40 H
Creatinine 0.7 0.6 L 0.8
Estimated Creat Clear 84 96 74
Albumin 3.2 L 3.3 L
Microbiology Results
06/17/24 08:51 Blood Culture - Preliminary
Blood/Venous No Growth in 72 hours- Final report to follow
Therapeutic Drug Monitoring
Random Vancomycin 16.0 ug/ml 06/21/24 04:26
[2024-06-21] MEDS: LOPRESSOR 100 MG PO ×2 (09:07→20:37)
[2024-06-21] MEDS: COLACE LIQUID 100 MG TUBE ×2 (09:07→20:37)
[2024-06-21] MEDS: LIPITOR 20 MG TUBE (09:07)
--- NOTE | 2024-06-21 09:10 | PTOTSP ---
Addendum entered and electronically signed by ST Tyler 06/21/24 10:04:
*7. NPO at baseline. No further skilled need indicated at this time per MD request.
Original Note:
Speech Language Pathology
Clinical Swallow Evaluation
74M with admission for septic shock 2/2 aspiration PNA, on tube feeds at baseline 2/2 throat ca hx s/p chemo RXT, p/w clinical s/s of oropharyngeal dysphagia. Recommend maintaining baseline NPO status at this time with oral care 3-5x a day. ?Reverse
aspiration related to tube feeding. Instructed on strict reflux precautions - upright with tube feeds; upright at least 60 minutes s/p tube feeds. Patient verbalized understanding.
Recommendations:
1. NPO x PEG tube feeds
2. Meds crushed via PEG
3. Not an ARHP candidate at this time 2/2 profound oropharyngeal dysphagia history
4. STRICT reflux precautions with tube feeds - upright with tube feeds; upright at least 60 minutes s/p tube feeds
5. Oral care 3-5x day
6. HEALTHCARE ADMINISTRATOR service to follow up on the acute care level and provide dysphagia tx PRN
--- NOTE | 2024-06-21 09:17 | W.PN.PUL3 ---
Today's Communication / Plan
-
Better TVs on BIPAP, repeat ABG overnight improved
Repeat ABG today off BIPAP, will add ETCO2 monitoring to avoid further ABGs
Trilogy set up at home: please use settings AC 400/20/PEEP 5+ or equivalent, using 8-10L with PAP at night
PT/OT evals ongoing, likely to go to SNF
Repeat CXR today per team
Can likely discharge in AM if CO2 stable
Discussed with care team
Assessment
-
74-year-old man with past medical history noted. Admitted with change in mental status/unresponsiveness. Found to have hypercapnic respiratory failure. Improved clinically in regards to mental status. Chest x-ray showed extensive left-sided
infiltrate with possible subsegmental atelectasis/pneumonia.
Acute on chronic hypercapnic respiratory failure
ABG 06/17/2024: 7.28/103/70
Pneumonia-likely bacterial. Cannot rule out aspiration
Extensive left-sided infiltrate with likely subsegmental atelectasis based on the left shift of the mediastinum.
Hyperglycemia
Possible TIA
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
Admitted to the hospital with left gastric artery bleeding status post embolization 06/2023-of anticoagulation since that
Chronic PEG
Chronic anemia
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
Left Lung Met s/p Wedge Resection
Prostate Cancer s/p XRT
Autonomic Insufficiency with Labile Blood Pressure
Paroxysmal Atrial Flutter, on apixaban
Bronchiectasis
Chronic Aspiration Pneumonitis
Dyslipidemia
Former Smoker (Quit 13 years ago. Smoke cigars prior to that)
DNR
Assessment and plan:
Clinical picture likely explained by left-sided pneumonia with possible segmental atelectasis. Suspect aspiration event.
Appears that the patient does have chronic hypercapnic respiratory failure. Decompensated due to pneumonia
Speech eval was recommended, order placed
Mental status back to baseline
ABG improved 06/18/2024: 7.31/98/76.
Repeat VBG off BIPAP 06/20- 7.2/>115/73, placed back on
Repeat ABG back on in evening .--with better TV on BIPAP
Repeat ABG today, hang ETCO2
Continue BiPAP therapy bedtime and as needed.
Avoid sedatives.
He demonstrates severe chronic CO2 retention likely related to upper airway compromise from throat cancer s/p radiation
We discussed need for NIV use at home
CM consult for home set up
He does not follow with OP sleep/pulmonary
Continue oxygen supplementation to maintain pulse ox above 90%.
Patient is chronically on oxygen at home.
4L use at home noted, recently increased
Currently at 6 L, wean down as tolerated
Chest x-ray this morning 06/19 reviewed: improvement of L sided consolidation without complete resolution
Continue secretion clearance interventions: Acapella device/vest therapy
Nebulizers: Pulmicort/Atrovent.
Albuterol as needed.
Continue to follow radiographically.
Continue antibiotics: Ampicillin sulbactam.
Infectious disease has been consulted. Correspondence reviewed.
MRSA screening positive. Vancomycin was added.
Blood cultures-negative, no sputum sent
Head of the bed elevation
Tube feedings via PEG tube-patient is a status post throat cancer status post chemoradiation.
Maintain NPO status
Speech eval
Possible TIA. Neurologically back to baseline
Neurology following the patient
Management per primary team and neurology
DVT prophylaxis
Encouraged OOB/PT/OT
Deconditioning noted
Subjective Data
-
Date of Service:
Date of Service: June 21, 2024
Chief Complaint: Pulmonary Follow Up (Pneumonia/hypercapnic respiratory failure)
Subjective:
doing well today, more awake
off bipap
at bedside
Objective Data
Data Reviewed
Vital Signs / I&O / Oxygen:
Vital Signs
Temp Pulse Resp BP Pulse Ox
98.4 F 101 28 130/111 96
06/21/24 02:40 06/21/24 07:49 06/21/24 07:49 06/21/24 06:07 06/21/24 07:49
Intake and Output
06/20/24 06/21/24 06/22/24
06:59 06:59 06:59
Intake Total 1100 / 1100 1890 / 1890
Output Total 600 / 600 1000 / 1000
Balance 500 / 500 890 / 890
SaO2 96
Nasal Cannula flow liters per 6
minute
Physical Exam
General: Respiratory Distress (n), Comfortable and Other (thin, overall deconditioned/weak)
HEENT: Normocephalic, Anicteric and Other (speech impairment noted)
Cardiovascular: S1-S2 and Regular Rhythm
Respiratory: Wheeze (n) and Crackles (L>R)
GI: Soft, Non Distended, Non Tender and Feeding Tube
Neurology: Awake, Alert, Oriented, AO x 3, No Motor Deficits and Other (overall weakness noted)
Skin: Warm, Dry and Other (pale appearing)
Labs/Micro/Reports
Lab Data
06/21/24 06:30
06/21/24 06:30
Laboratory Results
06/20/24
19:58
pH 7.40
pCO2 80 H*
pO2 93
HCO3 49.6 H*
O2 Delivery Level
Microbiology
06/17/24 08:51 Blood/Venous Blood Culture - Preliminary
No Growth in 4 days- Final report to follow
[2024-06-21] MEDS: VANCOCIN 275 MG IV (09:21)
--- NOTE | 2024-06-21 09:53 | W.PN.ID1 ---
Date of Service
Date of Service: June 21, 2024
Today's Communication
Continue antibiotics
Assessment / Plan
Unresponsive event
Extensive left-sided pneumonia
-Suspected aspiration PNA
Leukocytosis with left shift
Anemia
Hypothermia
Atrial flutter
Asthma
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
Prostate cancer
HTN
Dyslipidemia
Chronic dysphagia
Recurrent aspiration pneumonia
Chronic cough
Anemia
Hx GI bleed
Recommendations:
Patient with history of MRSA 1 year prior; continue empiric vancomycin.
Continue Unasyn 3 g IV every 6 hours
Monitor white count and temperature curve.
Follow CXR. Will repeat today.
����������������������������������������������������������
Chief Complaint
-: Pneumonia
Subjective / Review of Systems
Patient seen and examined. Reports feeling improved. Reports breathing comfortable.
Vital Signs / Physical Exam
Vital Signs
Vital Signs
Temp Pulse Resp BP Pulse Ox
98.4 F 101 28 130/111 96
06/21/24 02:40 06/21/24 07:49 06/21/24 07:49 06/21/24 06:07 06/21/24 07:49
Physical Exam
Constitutional: No Acute Distress, Comfortable, Chronically Ill and Non-toxic
Eyes: Sclera Anicteric
Oropharyngeal: Poor Dention
Cardiovascular: S1/S2; Negative S3/S4
Pulmonary: Rhonchi (Scattered.), Coarse (Bilateral) and Non Labored
Gastrointestinal: Soft, Non Distended, Normal Bowel Sounds, No Rebound, No Guarding and Other (PEG in place)
Extremities: Negative Edema, Cyanosis or Erythema
Neurological: Awake and Alert
Psychological: Calm
Objective Data
Lab Data
Lab Results
06/21/24 06:30
06/21/24 06:30
ESR 26 mm/hour (0-20) H 06/17/24 08:51
PT 12.2 Sec (11.4-14.6) 06/17/24 08:51
INR 0.92 06/17/24 08:51
APTT 27.0 Sec (23.4-35.0) 06/17/24 08:51
Estimated Creat Clear 74 ml/min 06/21/24 06:30
Lactic Acid 0.9 mmol/L (0.7-2.0) 06/17/24 13:26
Total Bilirubin 0.4 mg/dl (0.2-1.3) 06/20/24 03:35
AST 35 U/L (17-59) 06/20/24 03:35
ALT 37 U/L (0-50) 06/20/24 03:35
Alkaline Phosphatase 76 U/L (38-126) 06/20/24 03:35
Most recent labs reviewed.
Micro Results:
06/17/24 08:51 Blood Culture - Preliminary
Blood/Venous No Growth in 4 days- Final report to follow
06/20/24 12:25 MRSA Screen - Pending
Nose
Imaging:
06/19/2024 CXR (portable): Improved aeration of left upper lobe.
06/17/2024 CXR (2 view): Confluent pleural-parenchymal density throughout the lower two thirds of the left hemothorax and a similar and interstitial airspace disease in the upper third. Findings are most consistent with left-sided pneumonia with
associated pleural effusion. Right lung is clear. No pulmonary edema. See full report for additional detail. Film personally viewed.
[2024-06-21 11:35] LABS: B.E. 19.4 mmol/L; PO2 115 mmHg (83-108); pH 7.25 (7.35-7.45)
[2024-06-21 11:39] LABS: PCO2 114 mmHg (35-48)
[2024-06-21 12:25] LABS: Glucose - Point of Care 171 mg/dl (70-99)
[2024-06-21] MEDS: NOVOLOG FLEXPEN-LOW RESISTANCE 1 UNITS SC (12:26)
--- NOTE | 2024-06-21 13:09 | PTCARENOTE ---
Assumed care of patient at beginning of this shift from previous RN with bipap in use. Respiratory therapist changed to 8L midflow with POx 97%. Order for 2 view CXR changed to pCXR as per Dr Harris. Patient placed on ETCO2 as per Dr Flanagan. ABGs
done; results forwarded to Dr Flanagan via tiger text. at bedside. Both patient and stated they opted for rehab after hospitalization instead of d/c to home; case management in with them to discuss. Patient tolerating jevity tube feedings at
current rate of 45ml/hr. See worklist for full assessment and vital signs; see MAR for med administration.
--- NOTE | 2024-06-21 14:21 | CM ---
CM reviewed pt with Dr Flanagan and Dr Meraz and [facility]
Call from [employer] [facility] /NIV has been ordered and arranged
Bedside meeting with pt and spouse- they are now requesting SNF
PASRR and referrals sent via [facility]- [facility] is 1st choice
Pt will require BC auth
Outreach to therapy- will require updated evals for auth once medically appropriate
SNF will need to provide bipap and continued tube feeds at SNF
Discharge Disposition- SNF pending auth
[2024-06-21 14:54] LABS: NT-proBNP 2200 pg/ml
[2024-06-21 17:43] LABS: Glucose - Point of Care 142 mg/dl (70-99)
[2024-06-21] MEDS: VENTOLIN NEBULES 2.5 MG INH (19:45)
[2024-06-22] VITALS (27 sets, daily range): BP systolic 59–225; BP diastolic 33–140; PULSE 2–95; BMI 21.7
[2024-06-22] MEDS: NOVOLOG FLEXPEN-LOW RESISTANCE 1 UNITS SC ×2 (00:27→11:06)
[2024-06-22] MEDS: UNASYN IV ×3 (00:28→11:07)
[2024-06-22 00:37] LABS: Glucose - Point of Care 176 mg/dl (70-99)
--- NOTE | 2024-06-22 01:20 | PTCARENOTE ---
A/Ox3, slightly forgetful. Voiding via urinal. Tolerating TF via PEG. Tele showing NSR. Denies any pain. IV leaking; IV team placed new IV #22 LFA. Tolerating IV Abx and Bipap overnight. Took off bipap once on his own; education provided.
Awake and alert at midnight while on Bipap, stated he was not tired. SCDs on. Call vigil and tray table within reach.
[2024-06-22 05:51] LABS: Glucose - Point of Care 138 mg/dl (70-99)
[2024-06-22 05:56] LABS: Vancomycin Random 15.8 ug/ml
--- NOTE | 2024-06-22 06:00 | PTCARENOTE ---
Tele alarming Sp02 in 70s. RN and PCT entered room immediately, pt found taking off bipap mask. Pt adamantly refused, pushing the mask towards the end of the bed. Pt then slumped back in bed, turning strange/ blue in color. Pt became unresponsive.
Rapid response called, staff assist button pressed, and RN yelled out for help. Sp02 alarming 50s. Manually ventilated pt via Ambu-bag. Pulse was checked multiple times and never lost a pulse. Ater several minutes, patient became responsive, opening
eyes and following commands. skin color pink. Sp02 increased back up to 100% after several minutes via Ambu-bag. RT at bedside and ICU team. Bipap was placed back on pt. Pt educated again on the importance of keeping Bipap on. Pt nodded head.
1:1 order received for pt safety to keep bipap on and close staff monitoring.
Pt appears delusional, clapping hands and reaching out in the air. Pt able to state name and where he is.
Bed alarm set. Call vigil within reach.
--- NOTE | 2024-06-22 06:16 | W.PN.UPDATE ---
Update Note
Progress Note Update
CEMENT AND CONCRETE PLANT WORKER called, patient pulled off Bipap and oxygen level decreased, and patient noted to stop breathing per nursing + pulses, pale skin. Nursing and RT placed Bipap back, and patient recovered back to baseline. stable VS, 1:1 placed for closer
observation and to prevent from pulling off Bipap. Advised patient the consequences of removing Bipap. Patient is forgetful.
[2024-06-22] MEDS: NOVOLOG FLEXPEN-LOW RESISTANCE SC (06:21)
--- NOTE | 2024-06-22 06:44 | W.PN.HOSP.TC ---
Today's Communication/Plan
-
Worsening respiratory status
Move to ICU
C/W Bipap
Consider Vent support via trach if needed
Add IV metoprolol PRN
CBC and BMP
Low dose morphine PRN
Assessment / Plan
Assessment / Plan
Physical Exam
General: Not in Acute Distress
HEENT: Normocephalic
Respiratory: Decreased Breath Sounds and Scattered Rhonchi Bilaterally
Cardiac: S1/S2 and Regular Rhythm
GI: Soft, Non Tender and Normal Bowel Sounds
Musculoskeletal: No Cyanosis and No Edema
Skin: Warm and Dry
Neuro: Awake, Alert, AAO to self and surroundings, garbled speech ( chronic), he followed commands.
Psych: Calm

Assessment/Plan
# Worsening respiratory failure
Lethargy
X ray showed worsening opacities with atelectasis
Unable to clear secretions
Moved to ICU
c/w Bi Pap
Reviewed ABG and setting
Will need tracheostomy and vent support
Possible difficult intubation due to history of head and neck cancer and radiation.
Will give one dose of Morphine to help with agitation on BIpap, pt agreed
# Sepsis/septic shock present on admission
Acute on chronic hypoxic and hypercapnic respiratory failure
Severe chronic CO2 retention
Chronic Home Oxygen Use (2 to 4 L)
Aspiration Pneumonia
History of MRSA
After evaluating the patient and ruling out acute stroke. Patient seem to have suffered septic shock secondary to aspiration pneumonia
Blood pressure stabilized. Status post IV fluid
-Continue Vancomycin and Unasyn
-Breathing treatments/bronchodilators, acapella, and VEST therapy
# Toxic encephalopathy likely due to hypotension.
Unresponsiveness with hypotension and bradypnea, suspected secondary to respiratory failure and hypercapnia
Transient Facial Droop WAIT STAFF, Per Reports, neurology felt could be from recent Botox therapy that pt gets for secretions
Chronic slurred speech
-When EMS arrived they found a systolic blood pressure 40 and respiratory rate of 4; patient's pulse ox was in the single digits
- No evidence of drug induced sedation.
-ABG noted
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
basilar artery.
-Troponins elevated but with no significant increase
d/w neurology, no indication for DAPT with MRI showing chronic changes only.
EEG, no seizure activity
-Continue Atorvastatin
Per GI: GI doctor reviewed with IR. 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
This bleeding site was adequately treated and ASA and Plavix should be OK to use if deemed necessary by neurology.
#Positive troponin
not significant or c/w myocardial injury
Echo normal with no wall motion abnormalities
No chest pains
# Left lung metastasis status post wedge resection
Prostate cancer status post radiation
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
Stable
#PEG-Dependent/Chronic aspiration status post PEG dependent for feeding
History of Throat Cancer s/p XRT and Chemo
- He gets Botox injections to his salivary glands to decrease secretions
- Patient uses Jevity 1.5 at home. Five 8oz cans daily with water flushes before and after meals and meds.
- Continue home tube feed Jevity 1.5 at 20 mL/hr and increase by 10 with goal of 55
- consulted dietary for any updated tube feeding recommendations
# Bronchiectasis (on 2 to 4 L of oxygen at home)
Chronic Aspiration Pneumonitis
- Patient normally sees Dr. Powers outpatient
- Continue usual inhaled medication regimen.
- Aspiration precautions / HOB restrictions.
- Patient is strict NPO - takes all meds / meals via PEG.
#Paroxysmal Atrial Flutter
Will do IV PRN metoprolol
increased dose of Metoprolol
- No chest pain, no palpitations. Continue metoprolol with holding parameters.
- Patient's stated that patient did not take Eliquis anymore due to concerns over bleeding risk
#Cachexia without malnutrition
#Acute on chronic anemia due to Anemia of Chronic Disease
- Hgb 8
no active bleeding
History of MRSA
Dyslipidemia/ Hypertension
Autonomic Insufficiency with Labile Blood Pressure
Former Smoker (Quit 13 years ago. Smoke cigars prior to that)
DVT Prophylaxis: Thrombo guards and dual anti-plts therapy
Code Status: Full
Total time spent to see the patient, examine the patient on the floor, review data and lab results, discuss treatment plan with patient, neurologist, nursing staff around 59 minutes
Anticipated Discharge: > 48 hours
Subjective/Interval History
-
Date of Service: June 22, 2024
Events over night were reviewed with night team
Now in ICU 3363, restless, peripheral cyanosis , on Bipap
Objective Data
-
Vital Signs:
Vital Signs
Temp Pulse Resp BP Pulse Ox
99.5 F 76 18 117/102 98
06/22/24 04:40 06/22/24 04:00 06/22/24 04:00 06/22/24 04:00 06/22/24 04:00
I&O
06/20/24 06/21/24 06/22/24
06:59 06:59 06:59
Intake Total 1100 / 1100 1890 / 1890 1320 / 1320
Output Total 600 / 600 1000 / 1000 830 / 830
Balance 500 / 500 890 / 890 490 / 490
--- NOTE | 2024-06-22 06:45 | PTCARENOTE ---
Sp02 decreasing to 70s while Bipap on. Pt continues to be overall unwell; pale, tachypnea, hypertensive, hypoxic. Pt verbalizing his with the 1:1 at bedside. Second rapid response called. Transferred to ICU. Report given to ZI Tapia.
[2024-06-22] MEDS: ATROVENT NEBULES 0.5 MG INH (07:08)
[2024-06-22] MEDS: PULMICORT 0.25 MG INH (07:09)
[2024-06-22] MEDS: COLACE LIQUID TUBE (07:31)
[2024-06-22] MEDS: MORPHINE SULFATE 2 MG IV ×4 (07:38→16:28)
--- NOTE | 2024-06-22 07:41 | W.PN.INTV ---
Today's Communication / Plan
Recommendations
Transfer to ICU
BiPAP
Follow ABG
Antibiotics
Nebulizers
Tracheostomy tube-ENT consulted
Assessment
-
74-year-old man with past medical history noted. Admitted with change in mental status/unresponsiveness. Found to have hypercapnic respiratory failure. Improved clinically in regards to mental status. Chest x-ray showed extensive left-sided
infiltrate with possible subsegmental atelectasis/pneumonia.
Acute on chronic hypercapnic respiratory failure
ABG 06/17/2024: 7.
Pneumonia-likely bacterial-aspiration suspected
Extensive left-sided infiltrate with likely subsegmental atelectasis based on the left shift of the mediastinum.
Hyperglycemia
Possible TIA/toxic metabolic encephalopathy
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
Admitted to the hospital with left gastric artery bleeding status post embolization 06/2023-of anticoagulation since that
Chronic PEG
Chronic anemia
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
Left Lung Met s/p Wedge Resection
Prostate Cancer s/p XRT
Autonomic Insufficiency with Labile Blood Pressure
Paroxysmal Atrial Flutter, on apixaban
Bronchiectasis
Chronic Aspiration Pneumonitis
Dyslipidemia
Former Smoker (Quit 13 years ago. Smoke cigars prior to that)
DNR-Full code on this admission
Plan
Severe respiratory decompensation with respiratory arrest transfer to intensive care unit-critically ill
BiPAP 18/10 cm with oxygen-slowly wean IPAP/EPAP-reviewed with CRYOLITE RECOVERY OPERATOR
ABG 06/21/2024--114/115/7 0.25
ABG 06/22/2024--60/146/7 0.49
Aspiration precautions
Speech therapy evaluation
Follow chest x-ray-06/21/2024-worsening left-sided airspace disease with increase in size with moderate bilateral pleural effusions left greater than right
Avoid sedatives.
He demonstrates severe chronic CO2 retention likely related to upper airway compromise from throat cancer s/p radiation
We discussed need for NIV use at home
CM consult for home set up
He does not follow with OP sleep/pulmonary-will recommend follow-up at time of discharge
Nebulizers if needed-Pulmicort and ipratropium in addition to albuterol as needed
Mucus clearing devices
Vest therapy
Acapella
Consider tracheostomy tube-very high risk situation requiring BiPAP-patient agreeable-will discuss with primary team and consult ENT-Dr. Encarnacion contacted-possible trach 06/23/2024
Cultures reviewed-unrevealing
Unable to produce sputum
MRSA screen positive
Infectious disease following
Antibiotics per infectious disease-Ampicillin/sulbactam in addition to vancomycin
Monitor blood sugar
Insulin supplementation as needed
Neurologically back to baseline
Neurology following the patient
Management per primary team and neurology
Dual antiplatelet therapy discontinued as TIA/CVA felt unlikely
DVT prophylaxis recommended-mechanical, has had intra-abdominal bleeds and leery about anticoagulation
Nutrition-has gastrostomy tube-tolerating tube feeds
Encouraged OOB/PT/OT
Deconditioning noted
Outpatient pulmonary/sleep disorders follow-up
Critical care statement: A total of 45 minutes of critical care time was provided for this patient today. This includes management of unstable vital signs, evaluation of the patient at bedside, reviewing the patient's pertinent medical records
including radiographs, management of respiratory failure, noninvasive ventilation/BiPAP management, microbiology, laboratory evaluations, and discussion with primary team, consultants, pharmacy, nutrition, physical therapy, case management, charge
nurse, critical care nursing, and respiratory therapy.
Subjective Dataa
Subjective Data
Date of Service:
Date of Service: June 22, 2024
Chief Complaint: Practice Nurse Follow Up and Pulmonary Follow Up
Subjective:
Transferred urgently with severe respiratory distress near code situation, now on supportive BiPAP oxygenation improved, alert and oriented, answering questions appropriately, shortness of breath improved, no chest pain or abdominal pain
Review of Systems
General: Other (Per HPI)
Objective Data
Data Reviewed
Vital Signs / I&O / Oxygen:
Vital Signs
Temp Pulse Resp BP Pulse Ox
99.5 F 93 33 134/121 93
06/22/24 04:40 06/22/24 07:11 06/22/24 07:11 06/22/24 06:00 06/22/24 07:11
Intake and Output
06/21/24 06/22/24 06/23/24
06:59 06:59 06:59
Intake Total 1890 / 1890 1320 / 1320
Output Total 1000 / 1000 830 / 830
Balance 890 / 890 490 / 490
SaO2 93
Nasal Cannula flow liters per 8
minute
Physical Exam
General: Respiratory Distress (Mild) and Comfortable
HEENT: Normocephalic, Anicteric and Moist Mucous Membranes
Cardiovascular: Regular Rhythm
Respiratory: Wheeze (n), Crackles, Rhonchi (n), Accessory Resp Muscle Use (Mild) and Stridor (n)
GI: Soft, Non Distended, Non Tender and Feeding Tube
Neurology: Awake, Alert and No Motor Deficits
Skin: Warm, Good Color, Cyanosis (n), Jaundice (n) and Rash
Labs/Micro/Reports
Lab Data
06/21/24 06:30
06/21/24 06:30
Laboratory Results
06/21/24
11:12
pH 7.25 L
pCO2 114 H*
pO2 115 H
HCO3 50.0 H*
O2 Delivery Level
Microbiology
06/20/24 12:25 Nose MRSA Screen - Final
No Methicillin Resistant Staphylococcus aureus isolated.
06/17/24 08:51 Blood/Venous Blood Culture - Preliminary
No Growth in 4 days- Final report to follow
[2024-06-22] MEDS: LOPRESSOR 100 MG PO (07:46)
[2024-06-22] MEDS: LIPITOR 20 MG TUBE (07:47)
--- NOTE | 2024-06-22 07:55 | PHA.VAN.FU ---
Vancomycin Assessment / Plan
- Assessment
Renal Function: No New Labs Today
In the past 24 hrs, patient has been: Afebrile
Concomitant Antimicrobials: ampicillin/sulbactam
- Assessment - Therapeutic Drug Monitoring
Random Level: 15.8 - drawn ~19.5H after previous dose of 1250mg
- Dosing Plan
Dosing by Level: Re-dose today (Vanc 1000mg - reduce dosing slightly today)
- Monitoring Plan
Random Level: 06/23 06
- Follow Up
Pharmacy will continue to follow.
Vancomycin Follow UP
- -
Patient Age: 74
Patient Sex: Male
Vancomycin Day #: 6
Indication: Pulmonary/Respiratory
Requesting Provider: Dr. Harris
Pertinent Antimicrobial Allergies:
NKDA
Height / Weight:
Height 5 ft 9 in
Actual Weight 66.5 kg
Pertinent Past Medical History: PEG
- Vital Signs / Lab Results
Temp Pulse Resp BP Pulse Ox
99.5 F 88 33 154/124 93
06/22/24 04:40 06/22/24 07:46 06/22/24 07:11 06/22/24 07:46 06/22/24 07:11
Lab Results - Hematology
06/20/24 06/21/24
03:35 06:30
WBC 10.2 6.1
Lab Results - Chemistry
06/20/24 06/21/24
03:35 06:30
BUN 38 H 40 H
Creatinine 0.6 L 0.8
Estimated Creat Clear 96 74
Albumin 3.3 L
Microbiology Results
06/20/24 12:25 MRSA Screen - Final
Nose No Methicillin Resistant Staphylococcus aureus isolated.
06/17/24 08:51 Blood Culture - Preliminary
Blood/Venous No Growth in 4 days- Final report to follow
Therapeutic Drug Monitoring
Random Vancomycin 15.8 ug/ml 06/22/24 05:05
[2024-06-22 08:08] LABS: B.E. 22.6 mmol/L; PCO2 64 mmHg (35-48); PO2 146 mmHg (83-108); pH 7.49 (7.35-7.45)
[2024-06-22 08:09] LABS: HCO3 48.8 mmol/L (21-28)
[2024-06-22 08:20] LABS: INR 0.97; PT 12.8 Sec (11.4-14.6)
[2024-06-22 08:21] LABS: APTT 30.3 Sec (23.4-35.0)
--- NOTE | 2024-06-22 08:26 | PTCARENOTE ---
pt received via rapid response- pt anxious, restless, desatting on bipap. bipap 18/10 with 15L. labs and stat abg completed. Dr. Leslie at bedside- plan of care discussed with pt, verbalized understanding. pt confused at times at baseline with
garbled speech- per Dr. Meraz d/c stroke scales- pt able to follow commands and make needs known. 2mg of morphine given- pt less restless and resting more comfortably. peg tube in tact- site care given- tube feeds infusing without difficulty. pt
able to turn and reposition self. purewick in place. nsr on monitor- ekg completed. rac and lac ivs intact and flush. pt remains 1:1 for safety. all safety precautions in place, call belll within reach.
[2024-06-22 08:27] LABS: Magnesium 2.1 mg/dl (1.6-2.3)
--- NOTE | 2024-06-22 08:53 | PTOTSP ---
Reviewed chart and noted pt transferred to ICU earlier this AM and PT order was not continued upon transfer. Will need new orders for PT, if appropriate to resume activity.
[2024-06-22] MEDS: VANCOCIN 200 IV (09:11)
[2024-06-22] MEDS: PRECEDEX 100 IV (09:33)
--- NOTE | 2024-06-22 09:39 | PTCARENOTE ---
pt started on precedex- pt verbalized understanding to medication- pt remains restless and tachypneic on bipap. poc discussed further in rounds with Dr. Leslie. Pt in for ent consult. sats 97%. Dr. Leslie aware of pt bps- no new orders at this
time
[2024-06-22 10:24] LABS: Hematocrit 23.9 % (39.0-52.0); Hemoglobin 7.8 g/dL (13.0-18.0); Mean Corp Hgb Conc. 32.6 g/dL (33.0-37.0); Mean Corpuscular Hgb 33.3 pg (27.0-31.0); Mean Corpuscular Volume 102.1 fL (80.0-94.0); Platelet Count 141 10^3/uL (130-400); Red Blood Cell Count 2.34 10^6/uL (4.70-6.10); Red Cell Dist. Width 11.6 % (11.5-14.5); White Blood Cell Count 8.1 10^3/uL (4.8-10.8)
--- NOTE | 2024-06-22 11:11 | PTCARENOTE ---
at bedside and updated- education provided- verbalized understanding. pt assisted with turning and repositioning. remains on precedex gtt, denies discomfort or pain at this time. assessment unchanged further.
[2024-06-22 11:15] LABS: Blood Urea Nitrogen 42 mg/dl (9-20); Calcium 9.5 mg/dl (8.4-10.2); Chloride 91 mmol/L (98-107); Estimated Creatinine Clearance 86 ml/min; Glucose 137 mg/dl (70-99); Potassium 4.3 mmol/L (3.5-5.1); Sodium 137 mmol/L (135-145); eGFR > 60.00
[2024-06-22 11:16] LABS: Glucose - Point of Care 187 mg/dl (70-99)
[2024-06-22 11:27] LABS: Carbon Dioxide 44 mmol/L (22-30)
--- NOTE | 2024-06-22 12:02 | W.PN.UPDATE ---
Update Note
Progress Note Update
Reevaluated patient at the bedside with present
Family meeting with critical care nursing-Valentine Rodriguez RN present
Patient has decided that he does not want noninvasive ventilation, CPAP, BiPAP, tracheostomy tube, antibiotics, CPR, intubation, mechanical ventilation, antiarrhythmics and wants comfort and to be allowed to pass in peace. He clearly understands
the consequences of removing CPAP and not receiving a tracheostomy tube-he understands that he will pass-he wants no spiritual guidance or condolences, no other family members- present and in agreement with plan as he wants to respect his
wishes. She notes that in the past he is said that he has had it and did not want to suffer any longer
Updated respiratory therapy, critical care nursing, primary team Dr. Meraz and ENT
Comfort will be a priority-morphine and Ativan as needed, discontinue antibiotics and BiPAP and transferred to floor for comfort
TTS in critical care management as well as coordination of care today 85 minutes
[2024-06-22] MEDS: ATIVAN 1 MG IV ×2 (12:42→17:23)
--- NOTE | 2024-06-22 12:45 | PTCARENOTE ---
pt made dnr comfort care- at bedside- pt taken off precedex gtt, given ativan and morphine as per order. pt taken off bipap and placed on 4LNC. tube feeds stopped as per pt wishes and comfort orders. pt comfortable at this time. frequent oral
care provided.
--- NOTE | 2024-06-22 13:22 | CM ---
CM following re: discharge planning.
Reviewed pt's chart, met with pt and pt's spouse at bedside.
Per MD, pt does not want noninvasive ventilation, CPAP, BiPAP, tracheostomy tube, antibiotics, CPR, intubation, mechanical ventilation, antiarrhythmics and wants comfort care.
D/C plan: comfort care.
CM is available for emotional support.
--- NOTE | 2024-06-22 13:36 | W.PN.ID1 ---
Date of Service
Date of Service: June 22, 2024
Today's Communication
Sign off.
Assessment / Plan
Unresponsive event
Extensive left-sided pneumonia
-Suspected aspiration PNA
Leukocytosis with left shift
Anemia
Hypothermia
Atrial flutter
Asthma
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
Prostate cancer
HTN
Dyslipidemia
Chronic dysphagia
Recurrent aspiration pneumonia
Chronic cough
Anemia
Hx GI bleed
Recommendations:
Chart reviewed and events noted.
Patient has been transition to comfort measures, and overall appears quite comfortable.
Antibiotics have been discontinued.
Little more to offer from a Infectious Diseases standpoint.
Will see again at your request.
����������������������������������������������������������
Chief Complaint
-: Pneumonia
Vital Signs / Physical Exam
Vital Signs
Vital Signs
Temp Pulse Resp BP Pulse Ox
98.3 F 72 32 166/135 95
06/22/24 11:18 06/22/24 12:30 06/22/24 12:30 06/22/24 12:30 06/22/24 12:30
Physical Exam
Constitutional: Comfortable and Chronically Ill
Pulmonary: Other (mildly labored)
Gastrointestinal: Non Distended
Psychological: Calm
Objective Data
Lab Data
Lab Results
06/22/24 10:13
06/22/24 08:05
ESR 26 mm/hour (0-20) H 06/17/24 08:51
PT 12.8 Sec (11.4-14.6) 06/22/24 08:05
INR 0.97 06/22/24 08:05
APTT 30.3 Sec (23.4-35.0) 06/22/24 08:05
Estimated Creat Clear 86 ml/min 06/22/24 08:05
Lactic Acid 0.9 mmol/L (0.7-2.0) 06/17/24 13:26
Total Bilirubin 0.4 mg/dl (0.2-1.3) 06/20/24 03:35
AST 35 U/L (17-59) 06/20/24 03:35
ALT 37 U/L (0-50) 06/20/24 03:35
Alkaline Phosphatase 76 U/L (38-126) 06/20/24 03:35
Most recent labs reviewed.
Micro Results:
06/17/24 08:51 Blood Culture - Final
Blood/Venous No Growth - Final Report
06/20/24 12:25 MRSA Screen - Final
Nose No Methicillin Resistant Staphylococcus aureus isolated.
Imaging:
06/19/2024 CXR (portable): Improved aeration of left upper lobe.
06/17/2024 CXR (2 view): Confluent pleural-parenchymal density throughout the lower two thirds of the left hemothorax and a similar and interstitial airspace disease in the upper third. Findings are most consistent with left-sided pneumonia with
associated pleural effusion. Right lung is clear. No pulmonary edema. See full report for additional detail. Film personally viewed.
--- NOTE | 2024-06-22 15:04 | W.PN.UPDATE ---
Update Note
Progress Note Update
I met with at the bedside
Patient and have decided to pursue comfort measures.
Patient looks comfortable and receiving comfort medications including morphine
reported that she had good social support and did not want hospice consult
Will continue to follow
Discussed with nursing staff and ICU DrLyle, Appreciate help
End
--- NOTE | 2024-06-22 17:15 | PTCARENOTE ---
pt taken to 2130- and friend at bedside. morphine given throughout shift. report given to fabian hector.
--- NOTE | 2024-06-22 17:53 | PTCARENOTE ---
Pt arrived to floor from ICU agonal breathing. 1 dose of Ativan given 1723 pt in distress. Patient stopped breathing 1733. Doctor made aware.
--- NOTE | 2024-06-22 17:58 | W.PN.DEATH ---
Pronouncement of
-
Called to see patient to pronounce.
No spontaneous heart tones or respirations noted.
Patient not responsive to verbal stimuli.
Patient is pronounced .
Time of : 17:34
Date of : 06/22/24
Cause of : Aspiration pneumonia
Family Notified: Yes
--- NOTE | 2024-06-22 18:09 | W.DCSUMMARY ---
Discharge Summary
Discharge Data
Date of Admission: 06/17/24
Date of Discharge: 06/22/24
-
Pending Results: No
Hospital Course
Patient arrived with septic shock and aspiration pneumonia, eventually family decided to initiate comfort care and patient on 06/22/24 at 17:34pm
# Worsening respiratory failure
Lethargy
X ray showed worsening opacities with atelectasis
Unable to clear secretions
Moved to ICU
c/w Bi Pap
Reviewed ABG and setting
Will need tracheostomy and vent support
Possible difficult intubation due to history of head and neck cancer and radiation.
Will give one dose of Morphine to help with agitation on BIpap, pt agreed
# Sepsis/septic shock present on admission
Acute on chronic hypoxic and hypercapnic respiratory failure
Severe chronic CO2 retention
Chronic Home Oxygen Use (2 to 4 L)
Aspiration Pneumonia
History of MRSA
After evaluating the patient and ruling out acute stroke. Patient seem to have suffered septic shock secondary to aspiration pneumonia
Blood pressure stabilized. Status post IV fluid
-Continue Vancomycin and Unasyn
-Breathing treatments/bronchodilators, acapella, and VEST therapy
# Toxic encephalopathy likely due to hypotension.
Unresponsiveness with hypotension and bradypnea, suspected secondary to respiratory failure and hypercapnia
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
Chronic slurred speech
-When EMS arrived they found a systolic blood pressure 40 and respiratory rate of 4; patient's pulse ox was in the single digits
- No evidence of drug induced sedation.
-ABG noted
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
basilar artery.
-Troponins elevated but with no significant increase
d/w neurology, no indication for DAPT with MRI showing chronic changes only.
EEG, no seizure activity
-Continue Atorvastatin
Per GI: GI doctor reviewed with IR. 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
This bleeding site was adequately treated and ASA and Plavix should be OK to use if deemed necessary by neurology.
#Positive troponin
not significant or c/w myocardial injury
Echo normal with no wall motion abnormalities
No chest pains
# Left lung metastasis status post wedge resection
Prostate cancer status post radiation
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
Stable
#PEG-Dependent/Chronic aspiration status post PEG dependent for feeding
History of Throat Cancer s/p XRT and Chemo
- He gets Botox injections to his salivary glands to decrease secretions
- Patient uses Jevity 1.5 at home. Five 8oz cans daily with water flushes before and after meals and meds.
- Continue home tube feed Jevity 1.5 at 20 mL/hr and increase by 10 with goal of 55
- consulted dietary for any updated tube feeding recommendations
# Bronchiectasis (on 2 to 4 L of oxygen at home)
Chronic Aspiration Pneumonitis
- Patient normally sees Dr. Powers outpatient
- Continue usual inhaled medication regimen.
- Aspiration precautions / HOB restrictions.
- Patient is strict NPO - takes all meds / meals via PEG.
#Paroxysmal Atrial Flutter
Will do IV PRN metoprolol
increased dose of Metoprolol
- No chest pain, no palpitations. Continue metoprolol with holding parameters.
- Patient's stated that patient did not take Eliquis anymore due to concerns over bleeding risk
#Cachexia without malnutrition
#Acute on chronic anemia due to Anemia of Chronic Disease
- Hgb 8
no active bleeding
History of MRSA
Dyslipidemia/ Hypertension
Autonomic Insufficiency with Labile Blood Pressure
Former Smoker (Quit 13 years ago. Smoke cigars prior to that)
Discharge Plan
-
Patient Disposition:
Discharge Date and Time
Print Language: ESTONIAN
--- NOTE | 2024-06-22 18:29 | PTCARENOTE ---
Called [facility] and spoke with Josefina Jones. Pt qualifies for eyes/ cornea donation. [facility] will call back after speaking with family.
== END 2024-06-22 17:34 | disposition expired | DRG 871 ==
LOC: 2 NORTH 12:56
PROVIDERS: Internal Medicine; Internal Medicine Critical Care Medicine; Nurse Practitioner Gerontology; ADMITTING PHYSICIAN Hospitalist; ATTENDING PHYSICIAN Internal Medicine; EMERGENCY PHYSICIAN Emergency Medicine; FAMILY PHYSICIAN Family Medicine; OTHER PHYSICIAN Internal Medicine Critical Care Medicine; OTHER PHYSICIAN Internal Medicine Infectious Disease; OTHER PHYSICIAN Otolaryngology; OTHER PHYSICIAN Psychiatry & Neurology Neurology; OTHER PHYSICIAN Specialist
PROC: 5A09357 Assistance with Respiratory Ventilation, Less than 24 Consecutive Hours, Continuous Positive Airway Pressure (ICD-10-PCS; 2024-06-20)
DX: A41.9 Sepsis, unspecified organism (principal); G92.9 Unspecified toxic encephalopathy; J69.0 Pneumonitis due to inhalation of food and vomit; J96.21 Acute and chronic respiratory failure with hypoxia; R65.21 Severe sepsis with septic shock; J96.22 Acute and chronic respiratory failure with hypercapnia; J18.9 Pneumonia, unspecified organism; R64 Cachexia; E87.21 Acute metabolic acidosis; I48.92 Unspecified atrial flutter; J47.0 Bronchiectasis with acute lower respiratory infection; J98.11 Atelectasis; Z66 Do not resuscitate; I48.91 Unspecified atrial fibrillation; J45.909 Unspecified asthma, uncomplicated; R73.9 Hyperglycemia, unspecified; D63.8 Anemia in other chronic diseases classified elsewhere; E78.00 Pure hypercholesterolemia, unspecified; R13.19 Other dysphagia; Z93.1 Gastrostomy status; Z92.3 Personal history of irradiation; Z92.21 Personal history of antineoplastic chemotherapy; Z86.14 Personal history of Methicillin resistant Staphylococcus aureus infection; Z85.89 Personal history of malignant neoplasm of other organs and systems; Z85.810 Personal history of malignant neoplasm of tongue; Z85.46 Personal history of malignant neoplasm of prostate; Z87.891 Personal history of nicotine dependence; Z51.5 Encounter for palliative care; Z68.21 Body mass index [BMI] 21.0-21.9, adult; Z99.81 Dependence on supplemental oxygen
CPT/HCPCS: 36600; 70450; 70553; 71045; 71046; 80048; 80053; 80202; 81003; 81015; 82140; 82550; 82607; 82805; 82962; 83036; 83605; 83721; 83735; 83880; 84443; 84484; 85025; 85027; 85610; 85652; 85730; 87040; 87070; 92610; 93005; 93306; 93880; 94640; 94660; 94669; 95813; 96365; 96366; 96367; 97163; 97167; 97530; 97535; 99291; A9575